=== PATIENT | male | born 1955 | race Caucasian/White ===

== ENCOUNTER → 2020-01-23 | Outpatient (CLI) | payer OTHER ==
[2020-01-23 13:52] LABS: Basophils % (A) 0 %; Eosinophils # (A) 0.1 k/uL (0-0.7); Eosinophils % (A) 1 %; HCT 42.3 % (39.0-53.0); HGB 13.7 gm/dL (13.0-17.5); Lymphocytes # (A) 1.2 k/uL (1.0-4.8); Lymphocytes % (A) 15 %; MCH 31.4 pg (25.0-35.0); MCHC 32.3 g/dL (31.0-37.0); MCV 97.1 fL (80.0-100.0); Mean Platelet Volume 6.6; Monocytes # (A) 0.4 k/uL (0-1.0); Monocytes % (A) 5 %; Neutrophils # (A) 6.3 k/uL (1.3-7.7); Neutrophils % (A) 78 %; Platelet Count 280 k/uL (150-450); RBC 4.36 m/uL (4.30-5.90); RDW 13.4 % (11.5-15.5)
[2020-01-23 18:57] LABS: Albumin 3.8 g/dL (3.80-4.90); Albumin/Globulin Ratio 2.11 (1.60-3.17); Anion Gap 3.5 mmol/L (4.00-12.00); BUN/Creat Ratio 12.22 Ratio (12.00-20.00); Carbon Dioxide 29.5 mmol/L (21.6-31.8); Globulin 1.8 g/dL (1.6-3.3); Non-African American GFR(CKD) 90.6 (60.0-200.0); Potassium 4.2 mmol/L (3.5-5.5); Total Bilirubin 0.5 mg/dL (0.2-1.2); Total Protein 5.6 g/dL (6.2-8.2)
== END | disposition home or self-care (01) ==
LOC: LABWHC1 12:13
PROVIDERS: ATTEND Nurse Practitioner
DX: R10.13 Epigastric pain (principal)
CPT/HCPCS: 36415; 80053; 85025

== ENCOUNTER 2020-02-04 09:11 | Day surgery (SDC) | payer OTHER ==
[2020-01-31 16:08] VITALS: BMI 21.1
[~2020-02-04 09:11] MED LIST: LACTATED RINGERS 1,000 ML IV SCH
[2020-02-04 09:34] VITALS: RESP 16; TEMP 97.6
[2020-02-04] MEDS ORDERED: LIDOCAINE 1% (10MG/ML) FOR IV START INTRADERMA ONE (09:36)
[2020-02-04] MEDS ORDERED: PROPOFOL 10 MG/ML 20 ML VIAL IV ONE (09:47)
--- NOTE | 2020-02-04 10:17 | P.PCN ---
Date of Procedure: 02/04/20 Description of Procedure: BRIEF HISTORY: Patient is a 64-year-old, pleasant, who presents for EGD for evaluation of epigastric pain. Patient has been having symptoms of epigastric pain, bloating and eructation. Possible prior EGD in the past. Also reports altered bowel function PROCEDURE PERFORMED: Esophagogastroduodenoscopy with biopsy. PREOPERATIVE DIAGNOSIS: Epigastric abdominal pain. ESTIMATED BLOOD LOSS: Minimal. IV sedation per anesthesia. PROCEDURE: After informed consent was obtained, the patient was brought into the endoscopy unit. IV sedation was administered by Anesthesia under continuous monitoring. Initially the Olympus GIF-190 video endoscope was inserted into the mouth. Esophagus intubated without any difficulty. It was gradually advanced into the stomach and duodenum and carefully examined. The bulb and the second part of the duodenum appeared normal, with biopsies. The scope at this time was withdrawn to the stomach, adequately insufflated with air, and upon careful examination, mucosa of the antrum, body, cardia and the fundus appeared normal, with some mild scattered erythema in the antrum and body suggestive of mild gastritis biopsied. The scope was then withdrawn into the esophagus. The GE junction was located at 39 cm from the incisors and biopsied with suspicion for a short tongue of Blue's esophagus and with a 1 cm hiatal hernia noted. The esophagus appeared normal. There were no erosions or ulcerations seen and the patient tolerated the procedure well. IMPRESSION: 1. Mild gastritis. 2. Small hiatal hernia. 3. Biopsies of the duodenum, antrum and body and GE junction. RECOMMENDATIONS: The findings of this examination were discussed with the patient. Okay to resume diet. Okay to resume medications. Continue PPI therapy. Await pathology from biopsies. Patient was scheduled for a colonoscopy but was unable to tolerate prep, and reschedule with alternate prep.
[2020-02-04 10:31] VITALS: BP 126/48; PULSE 84
== END 2020-02-04 11:22 | disposition home or self-care (01) ==
LOC: ORWHC2ENDO 09:11
PROVIDERS: ATTEND Internal Medicine
DX: K29.70 Gastritis, unspecified, without bleeding (principal); K44.9 Diaphragmatic hernia without obstruction or gangrene; K22.70 Barrett's esophagus without dysplasia; R19.4 Change in bowel habit; K08.409 Partial loss of teeth, unspecified cause, unspecified class; F17.200 Nicotine dependence, unspecified, uncomplicated; N40.0 Benign prostatic hyperplasia without lower urinary tract symptoms; K21.9 Gastro-esophageal reflux disease without esophagitis; Z91.030 Bee allergy status; Z91.038 Other insect allergy status; Z79.899 Other long term (current) drug therapy; Z79.1 Long term (current) use of non-steroidal anti-inflammatories (NSAID); Z98.890 Other specified postprocedural states
CPT/HCPCS: 88305; 43239; J2704

== ENCOUNTER → 2020-02-06 | Outpatient (CLI) | payer OTHER ==
--- NOTE | 2020-02-06 21:00 | CT ---
EXAMINATION TYPE: CT abdomen pelvis w con DATE OF EXAM: 02/06/2020 COMPARISON: None INDICATION: ABNORMAL WEIGHTLOSS/AB PAIN X 3 MONTHS DLP: 445.3 mGycm, Automated exposure control for dose reduction was used. CONTRAST: 100 mL of Isovue 300. Study performed with Oral Contrast TECHNIQUE: Axial images were obtained from above the diaphragm to the pubic rami in the axial plane a t 5 mm thick sections. Reconstructed images are reviewed on the computer in the coronal plane. FINDINGS: Limited CT sections are obtained the lung bases. The lung bases are clear. CT ABDOMEN: Liver: Normal Spleen: Normal Pancreas: Normal Adrenal glands: The adrenal glands are normal. Gallbladder: Normal Kidneys: No masses are evident. No hydronephrosis is present. No cysts are present. Delayed images were obtained through the kidneys, which remain unremarkable. Aorta: Vascular calcification is within the aorta. Inferior vena cava: Normal. CT PELVIS: The ascending: There is diffusely thickened and somewhat prominent. There are dilated small bowel loo ps within the lower abdomen. Milder wall thickening of the terminal ileum appears to be present. More proximal small bowel loops appear nondilated. A small bowel intussusception is identified in left up per quadrant. Example image series 7 image 34. No obstruction is evident. Appendix: Not identified. No suspicious inflammatory changes are evident Urinary bladder: Thickened urinary bladder wall. There is lobular increased density within the inferi or urinary bladder which may be direct extension from the enlarged prostate. Neoplastic invasion and urinary bladder neoplasm should also be considered. Additional workup is recommended. Genitourinary structures: Prostate is very prominent impressing on the inferior and a bladder. Osseous structures: There is a sclerotic lesion within the medial right iliac wing. This is nonspecif ic. Sacroiliac joint degenerative changes are present. IMPRESSIONS: 1. Enlarged lobular prostate with inferior impression on the urinary bladder. Neoplasm should be con sidered within the differential. Direct invasion or urinary bladder floor neoplasm should be consider ed. 2. Diffuse thickening of the ascending colon with prominence of the distal small bowel loop sepulveda in dilated distal small bowel loop. Correlate for colitis and ileitis. 3. Note is made of a small bowel intussusception without obstruction in the left upper quadrant of th e abdomen.
== END | disposition home or self-care (01) ==
LOC: RADCTMAIN 11:31
PROVIDERS: ATTEND Nurse Practitioner
DX: N40.0 Benign prostatic hyperplasia without lower urinary tract symptoms (principal); K56.1 Intussusception; K63.89 Other specified diseases of intestine
CPT/HCPCS: 74177; Q9967

== ENCOUNTER 2020-03-10 09:43 | Day surgery (SDC) | payer OTHER ==
[2020-03-06 16:07] VITALS: BMI 20.6
[~2020-03-10 09:43] MED LIST changes: +LIDOCAINE 1% (10MG/ML) FOR IV START INTRADERMA PRN
[2020-03-10] MEDS ORDERED: ONDANSETRON 4 MG/2 ML VIAL ONE (10:18)
[2020-03-10 10:25] VITALS: RESP 16; TEMP 97.3
[2020-03-10] MEDS ORDERED: LIDOCAINE 1% INJ 10MG/ML (20 ML MDV) ONE (10:50)
[2020-03-10] MEDS ORDERED: PROPOFOL 10 MG/ML 20 ML VIAL IV ONE (10:50)
--- NOTE | 2020-03-10 11:54 | P.PCN ---
Date of Procedure: 03/10/20 Description of Procedure: Brief history: Patient is a pleasant 64-year-old male presenting for colonoscopy for evaluation of screening for malignant neoplasm of the colon. The patient had previously been in the clinic where he complained of abdominal pain, unintentional weight loss. He had EGD and evaluation significant only for mild gastritis. Computed tomography scan of the abdomen and pelvis showed a large lobular prostate as well as diffuse thickening of the ascending colon with prominence of the distal small bowel sepulveda and a dilated distal small bowel loops with recommendation to correlate for colitis or ileitis. Procedure performed: Colonoscopy with biopsy, polypectomy and tattoo Estimated blood loss: Minimal. Preoperative diagnosis: Screening for malignant neoplasm of the colon, unintentional weight loss, abdominal pain Anesthesia: MAC Procedure: After informed consent was obtained from the patient was brought into the endoscopy unit and IV sedation was administered by anesthesia under continuous monitoring. Initial digital rectal examination was normal, except for nonthrombosed external hemorrhoids. Olympus CF 190 video colonoscope was then inserted into the rectum and gradually advanced to the right colon where abnormal thickened tissue which was quite friable was visualized unclear if this represented a mass or active colitis and multiple biopsies were taken of this right colon abnormal tissue/mass with 3 mL of ink placed proximal to the area to tattoo the location in case malignancy is found. Random biopsies were also taken of transverse colon, left colon and right colon all which appeared otherwise normal. Diverticula were noted throughout the left colon. Internal hemorrhoids were seen on retroflexion in the colon. 2 polyps were removed one diminutive 2 mm polyp in the rectum with cold forcep polypectomy and 1 from the descending colon measuring approximately 8 mm in size with hot snare polypectomy. Retroflexion in the colon was significant only for internal hemorrhoids as reported with no masses noted. The patient tolerated the proc edure well. Impression: 1. Abnormal thickened tissue in the right colon unclear if this represents a mass or active colitis/ileitis with biopsies taken and tattoo placed proximal to the mass. 2. Random biopsies taken of the right colon, transverse colon and left colon. 3. Pedunculated 8 mm descending colon polyp removed with hot snare polypectomy. 4. Diminutive 2 mm rectal polyp removed with cold forcep polypectomy. 5. Internal and external hemorrhoids. Recommendations: Findings of this examination were discussed with the patient as well as his . Okay to resume diet. Would recommend avoiding very fibrous foods for now. Patient will be given a follow-up in the GI clinic next week to go over biopsy results for further management.
[2020-03-10 12:04] VITALS: BP 135/83; PULSE 91
== END 2020-03-10 12:55 | disposition home or self-care (01) ==
LOC: ORWHC2ENDO 09:43
PROVIDERS: ATTEND Internal Medicine
DX: C18.2 Malignant neoplasm of ascending colon (principal); D12.4 Benign neoplasm of descending colon; K62.1 Rectal polyp; K63.89 Other specified diseases of intestine; K57.30 Diverticulosis of large intestine without perforation or abscess without bleeding; K64.8 Other hemorrhoids; K64.4 Residual hemorrhoidal skin tags; N40.0 Benign prostatic hyperplasia without lower urinary tract symptoms; K21.9 Gastro-esophageal reflux disease without esophagitis; Z79.899 Other long term (current) drug therapy; Z91.030 Bee allergy status
CPT/HCPCS: 45385; 45380; 45381; 88305; J2405; J2001; J2704; 44404

== ENCOUNTER → 2020-03-26 | Outpatient (CLI) | payer OTHER | END | disposition home or self-care (01) | LOC: LABWHC1 10:20 | PROVIDERS: ATTEND Surgery | DX: U07.1 COVID-19 (principal) ==

== ENCOUNTER 2020-03-29 06:28 | Inpatient (IN) | payer OTHER ==
[2020-03-27 11:10] VITALS: BMI 19.9
[~2020-03-29 06:28] MED LIST changes: -LACTATED RINGERS 1,000 ML IV SCH; -LIDOCAINE 1% (10MG/ML) FOR IV START INTRADERMA PRN; +metroNIDAZOLE-NS PMX 500 MG in SALINE 1 100ML.BAG IVPB ONE
[2020-03-29] MEDS ORDERED: HEPARIN SODIUM,PORCINE 5,000 UNIT/ML 1 ML VIAL SQ ONE (08:27)
[2020-03-29] MEDS ORDERED: PROPOFOL 10 MG/ML 20 ML VIAL IV ONE (08:51)
[2020-03-29] MEDS ORDERED: MIDAZOLAM 2 MG/2 ML VIAL ONE (08:51)
[2020-03-29] MEDS ORDERED: LIDOCAINE 1% INJ 10MG/ML (20 ML MDV) ONE (08:51)
[2020-03-29] MEDS ORDERED: ONDANSETRON 4 MG/2 ML VIAL ONE (08:51)
[2020-03-29] MEDS ORDERED: DEXAMETHASONE SOD PHOSPHATE 10 MG/ML 1 ML VIAL ONE (08:51)
[2020-03-29] MEDS ORDERED: PHENYLEPHRINE-0.9% NACL SYG 1 MG/10 ML SYRINGE ONE (08:51)
[2020-03-29] MEDS ORDERED: fentaNYL (PF) 50 MCG/ML 2 ML AMP ONE (08:51)
[2020-03-29] MEDS ORDERED: GLYCOPYRROLATE 0.2 MG/ML 2 ML VIAL ONE (08:51)
[2020-03-29] MEDS ORDERED: SUCCINYLCHOLINE CHLORIDE 100 MG/5 ML SYR IV ONE (08:51)
[2020-03-29] MEDS ORDERED: ROCURONIUM 10 MG/ML (10 ML VIAL) IV ONE (08:51)
[2020-03-29] MEDS ORDERED: NEOSTIGMINE 1 MG/ML 10 ML VIAL ONE (08:51)
[2020-03-29] MEDS ORDERED: LACTATED RINGERS 1,000 ML IV ONE ×2 (08:59→10:49)
[2020-03-29] MEDS ORDERED: NALOXONE 0.4 MG/ML 1 ML VIAL IV PRN (09:28)
--- NOTE | 2020-03-29 09:31 | P.ANPRN ---
Procedure Note - Anesthesia - Epidural/Spinal Epidural Continuous Time Out Performed: Yes Date of Procedure: 03/29/20 Procedure Start Time: 08:51 Procedure Stop Time: 08:56 Location of Patient: PreOp Indication: Acute Post-Operative Pain Sedation Type: Sedate with meaningful contact maintained Preparation: Sterile Dressing Position: Sitting Catheter: Indwelling Needle Guage: 18 Injectate: Test Dose Lidocaine1.5% w/1:200,000 epi Blood Aspirated: No Pain Paresthesia on Injection Noted: No Events: Uneventful and Well Tolerated (test dose 3cc given no change noticed)
[2020-03-29] MEDS ORDERED: BUPIVACAINE (PF) 0.25% 30 ML VIAL SQ ONE ×2 (10:10)
[2020-03-29] MEDS ORDERED: LIDOCAINE 1%-EPI 1:100,000 20 ML VIAL SQ ONE ×2 (10:10)
--- NOTE | 2020-03-29 10:37 | P.OP ---
Date of Procedure: 03/29/20 Preoperative Diagnosis: Inability to insert urethral catheter Postoperative Diagnosis: Inability to insert urethral catheter secondary to urethral false passage Procedure(s) Performed: Cystoscopy with placement of urethral catheter Anesthesia: DEONDRE Surgeon: Joseph Payan Pathology: none sent Condition: stable Disposition: no change Indications for Procedure: Patient is a 64-year-old male recently diagnosed with colon cancer who was scheduled to undergo robotically assisted laparoscopic right colectomy this morning. An attempt was made to place urethral catheter but this proved impossible. Dr. Pozo also attempted passage of a filiform but this failed. I was asked to see the patient for the purpose of placement of the catheter as the patient is under general anesthesia for his scheduled surgery. Description of Procedure: The patient had previously been given general anesthesia via orotracheal intubation and was supine on the operating table. The penis was prepped with Betadine solution and draped in a sterile fashion. The flexible 16-Belgian cystoscope was passed through the urethra under direct vision. In the bulbous urethra a false passage was encountered. Initially the opening into the true urethra was not readily visible but eventually it was located at 2:00. A 0.035 Glidewire was passed through the false passage and into the bladder. The cystoscope was then advanced over the Glidewire and into the bladder. The false passage was present in the bulbous urethra but there was no evidence of stricture. Prostatic urethra showed evidence of moderate lateral lobe enlargement. Both ureteral orifices were of normal location. The bladder was free of tumor, foreign body and diverticulum. The cystoscope was withdrawn leaving the Glidewire in place. A 16-Belgian coud catheter with a slit cut at its tip was advanced over the Glidewire and into the bladder. The balloon was inflated and concentrated urine drained. Patient tolerated the procedure well. The remainder the procedure will be performed by Dr. Pozo and a description will be in her operative note. I would recommend leaving the catheter in place for at least 4-5 days prior to removal.
--- NOTE | 2020-03-29 10:41 | P.GSCN ---
History of Present Illness Consult date: 03/29/20 Reason for Consult: Inability to insert urethral catheter History of present illness: The patient's a 64-year-old male who was recently discovered to have colon cancer and was scheduled to undergo robotically assisted right colectomy this morning. He was given a general anesthetic and attempts were made to pass a urethral catheter but this proved impossible. I was asked to see the patient intraoperatively for the purpose of placement of a catheter. The patient is under a general anesthetic and is intubated and because of that no additional history was obtainable. He was not on alpha blockers and apparently is not seen on a regular basis by a physician. Review of Systems ROS unobtainable: due to endotracheal tube Past Medical History Past Medical History: GERD/Reflux, Prostate Disorder Additional Past Medical History / Comment(s): spouse states "small bowel looped around itself,polyps removed on colonoscopy.",states 50 # wt loss since Jun 2019, pain in stomach with nausea and vomiting after eating, BPH. History of Any Multi-Drug Resistant Organisms: None Reported Past Surgical History: Ear Surgery, Orthopedic Surgery Additional Past Surgical History / Comment(s): colonoscopy,EGD,hand/finger, ear , shoulder Past Anesthesia/Blood Transfusion Reactions: No Reported Reaction Additional Past Anesthesia/Blood Transfusion Reaction / Comm: no hx blood transfusion Past Psychological History: No Psychological Hx Reported Smoking Status: Current every day smoker Past Alcohol Use History: None Reported Additional Past Alcohol Use History / Comment(s): smokes less than 1 ppd, smoking since 21 yrs old. quit drinking 8-9 yrs ago. Past Drug Use History: None Reported - Past Family History Father Family Medical History: Cancer Additional Family Medical History / Comment(s): brain and lung cancer Sister(s) Family Medical History: Cancer Additional Family Medical History / Comment(s): breast cancer Medications and Allergies Home Medications Medication Instructions Recorded Confirmed Type Omeprazole 40 mg PO DAILY 01/31/20 03/29/20 History Allergies Allergy/AdvReac Type Severity Reaction Status Date / Time bees hornet, wasps Allergy Unknown swelling, Uncoded 03/29/20 08:17 difficulty breathing Surgical - Exam Vital Signs Temp Pulse Resp BP Pulse Ox 98.4 F 81 18 118/75 99 03/29/20 07:00 03/29/20 07:00 03/29/20 07:00 03/29/20 07:00 03/29/20 07:00 - General well developed, well nourished - Abdomen Hernia: none - Genitourinary normal penis with no external lesions, testicles present, other - Rectum Blood is present at the urethral meatus Assessment and Plan (1) Urethral bleeding Narrative/Plan: Inability to insert the patient's urethral catheter and his urethral bleeding is most likely related to either a urethral stricture or a false passage from previous attempts at insertion of a catheter. Cystoscopy will be performed to facilitate insertion of a catheter. Current Visit: Yes Status: Acute Code(s): N36.8 - OTHER SPECIFIED DISORDERS OF URETHRA SNOMED Code(s): 540477284
--- NOTE | 2020-03-29 11:25 | P.OP ---
Date of Procedure: 03/29/20 Preoperative Diagnosis: Colon cancer, small bowel intussusception Postoperative Diagnosis: Obstructing colon cancer with no sign of intussusception Procedure(s) Performed: Diagnostic laparoscopy, laparotomy with right hemicolectomy Anesthesia: DEONDRE Surgeon: Jessica Pozo Estimated Blood Loss (ml): 50 Pathology: other Condition: stable Disposition: PACU Indications for Procedure: The patient presented with progressive nausea and vomiting. Colonoscopy demonstrated a right colon tumor. Computed tomography scan was suggestive of a small bowel intussusception. Description of Procedure: The patient was taken the operative suite where he is prepped and draped in the usual sterile manner under a general endotracheal anesthetic. A small infraumbilical incision was made an optical trocar was placed into the abdominal cavity. Pneumoperitoneum was established with CO2 gas. There are markedly dilated loops of small bowel in the right colon. There are also some nondistended loops. The nondistended loops were followed and actually went up to the ligament of Treitz. A definite intussusception could not be seen. The dilated loops of small bowel were to heavy to be able to run. Therefore the abdomen was entered through a midline incision. The dilated loops of small bowel were brought out of the abdominal cavity. These went all the way to the cecum. The cecum and right colon were markedly distended. The small bowel was run from the ileocecal valve proximally. The small bowel contents were milked into the stomach and aspirated through orogastric tube. There was no evidence of any small bowel tumors or signs of intussusception. In the hepatic flexure there is noted to be an obstructing colon tumor. The terminal ileum and right colon were then mobilized along the white line of Toldt. The right colon is brought up through the incision. The transverse colon is dissected off the stomach and the gastrocolic ligament was taken down with LigaSure. A site was then chosen in the mid transverse colon for resection. Opening was made in the mesentery. The stapler was placed and fired. A site was chosen on the terminal ileum and opening was made in the mesentery. Stapler was placed and fired. Mesentery was then dissected free with LigaSure. The ileocolic vessels were clamped, cut and tied with 0 Vicryl suture. There are several enlarged lymph nodes palpated in the mesentery. The middle colic vessels are then clamped cut and tied. The specimen was passed off. The ileum and transverse colon were then approximated using seromuscular sutures of 3-0 Vicryl. An opening was then made in each limb of the bowel and a THONY stapler was placed and fired. The staple line was hemostatic. The remaining defect was approximated with Valeria's and it was closed using a TA stapler. The staple line was reinforced with 3-0 Vicryl. The mesenteric defect was closed with 3-0 Vicryl. Gloves were changed. The bowel was allowed to lay in gentle loops. The fashion peritoneum was closed with 1 PDS. The skin incisions were closed with ryan. Tolerated the procedure without difficulty and was taken recovery room in satisfactory condition. According to or personnel, all counts were correct.
[2020-03-29] MEDS: ROPIVACAINE 250 MG, HYDROMORPHONE (PF) 5 MG in SODIUM CHLORIDE 0.9% 200 ML EPIDURAL PRN ×2 (11:30→12:29)
--- NOTE | 2020-03-29 13:29 | P.CONS ---
History of Present Illness - Reason for Consult Consult date: 03/29/20 Medical management Requesting physician: Jessica Pozo - Chief Complaint Colon cancer post right sided hemicolectomy, severe BPH with fully catheter - History of Present Illness 63-year-old male with no primary care physician who apparently has been suffering from significant weight loss with abdominal pain nausea vomiting for over one year become much worse in the last few weeks. Apparently was in to see his daughter who was diagnosed with severe Crohn disease had colostomy and ileostomy with Dr. Pratt and general surgery when the finally common to gastroenterology about his, with her and was brought to the office seen their service and end up being scheduled for elective colonoscopy was attempted first time not successful with poor prep and not been able to advance the scope. Second colonoscopy was done successfully in March 10 the result came back positive for stage IIB adenocarcinoma of the colon apparently large right-sided colon cancer spot along with 2 polyps were removed. Patient was scheduled with Dr. Pozo for follow-up appointment and was referred to Dr. Fuentes oncology with him been very symptomatic had lost over 50 pound has been having sign and symptom of bowel obstruction become urgent matter to go for surgery ALICIA. Patient had his surgery today with attempt of doing robotic surgery and the been conventional with laparoscopy will laparotomy with right sided hemicolectomy along with small bowel inspection with no sign of obstruction. While his in the OR had difficult time advancing Lagunas catheter patient was seen Dr. Herrera and Lagunas was place in and patient be start on Flomax every day. Review of Systems CONSTITUTIONAL: Well-developed no acute respiratory distress. More drowsy after surgery EYES: No icterus sclerae, no conjunctivitis. EARS, NOSE, MOUTH, THROAT, and FACE: No sore throat, lymphadenopathy, carotid bruits or deformity. RESPIRATORY: No SOB cough or wheezes. CARDIOVASCULAR: No CP, Palpitation, PND, Orthopnea, or angina. Significant abdominal pain. GASTROINTESTINAL: No Abd pain, Nausea or vomiting, no Diarrhea or constipation, No GI Bleed, no distention or masses. GENITOURINARY: Negative for Hematuria or UTI, no kidney stones. Urinary obstruction with Lagunas catheter in. INTEGUMENT/BREAST: Negative for any muscular injury with mild osteoarthritis.. HEMATOLOGIC/LYMPHATIC: Negative for bleed or purpura. MUSCULOSKELTAL: Negative for Myalgia or arthralgia. NEURLOGICAL: No LOC, Sz or syncope, blurred vision dizziness or abnormality.. BEHAVIORAL/PSYCH: Negative. ENDOCRINE: Negative. Social history: Patient smokes half pack a day for 30 years [place] and abused no illicit drug use he works in [employer] has been for over 40 years. Family history: His father age 59 from lung cancer, mother dying her 80 from colon cancer CVA, patient had 1 sister with eye from a testing breast-cancer and has for living brother and one sister with history of CAD. Patient had 2 children 1 has multiple problem with liver and pancreatic area most likely gallstone and 1 has Crohn disease. Past Medical History Past Medical History: GERD/Reflux, Prostate Disorder Additional Past Medical History / Comment(s): spouse states "small bowel looped around itself,polyps removed on colonoscopy.",states 50 # wt loss since Jun 2019, pain in stomach with nausea and vomiting after eating, BPH. History of Any Multi-Drug Resistant Organisms: None Reported Past Surgical History: Ear Surgery, Orthopedic Surgery Additional Past Surgical History / Comment(s): colonoscopy,EGD,hand/finger, ear , shoulder Past Anesthesia/Blood Transfusion Reactions: No Reported Reaction Additional Past Anesthesia/Blood Transfusion Reaction / Comm: no hx blood transfusion Past Psychological History: No Psychological Hx Reported Smoking Status: Current every day smoker Past Alcohol Use History: None Reported Additional Past Alcohol Use History / Comment(s): smokes less than 1 ppd, smoking since 21 yrs old. quit drinking 8-9 yrs ago. Past Drug Use History: None Reported - Past Family History Father Family Medical History: Cancer Additional Family Medical History / Comment(s): brain and lung cancer Sister(s) Family Medical History: Cancer Additional Family Medical History / Comment(s): breast cancer Medications and Allergies Home Medications Medication Instructions Recorded Confirmed Type Omeprazole 40 mg PO DAILY 01/31/20 03/29/20 History Allergies Allergy/AdvReac Type Severity Reaction Status Date / Time bees hornet, wasps Allergy Unknown swelling, Uncoded 03/29/20 08:17 difficulty breathing Physical Exam Vitals: Vital Signs Temp Pulse Resp BP Pulse Ox 03/29/20 12:15 60 16 139/81 98 03/29/20 12:00 60 16 159/68 100 03/29/20 11:45 59 L 16 168/77 100 03/29/20 11:30 97 F L 69 14 169/77 100 11/08/20 07:00 98.4 F 81 18 118/75 99 Intake and Output 03/28/20 03/29/20 03/29/20 22:59 06:59 14:59 Intake Total 1762 Output Total 425 Balance 1337 Intake: IV 1762 Output: Urine 375 Estimated Blood Loss 50 Other: Weight 66.678 kg 66.678 kg General Appearance: Alert, cooperative, no distress, appears stated age. No NG tube Neck HEENT: Supple, no lymphadenopathy, no thyroid enlargement, no carotid bruits. Lungs: Clear to auscultation without crackles or wheezes no rhonchi, no deformity. Chest Wall: Chest wall normal expansion with deep inspiration no tenderness and no deformity was found on exam, no costochondral pain or discomfort. Heart: Regular rate and rhythm, S1, S2 normal, no murmur, rub or gallop. Back: Symmetric, no curvature, ROM normal, no CVA tenderness. Abdomen: Soft, non-tender, bowel sounds active all four quadrants, no masses, no organomegaly. Stool incision the one in the midline and one on the right side with no sign of bleeding hematoma or hemorrhage Extremities: Extremities normal, atraumatic, no cyanosis or edema. Pulses: 2+ and symmetric. Skin: Skin color, texture, tugor normal, no rashes or lesions. Neurologic: Alert oriented x3 cranial nerves II through XII intact, no motor deficit, no abnormal balance or gait. Assessment and Plan Assessment: 1 post laparotomy with right hemicolectomy: Patient stable post surgery continue to watch hemodynamic status continue pain management with epidural this point GI DVT pulmonary prophylaxis protocol. 2 right-sided colon cancer: Not a clear whether it's involving the lymph node or not was diagnosed as stage IIb by colonoscopy and biopsy patient is seen oncology will need follow-up with oncology after the final pathology from his surgical site done to determine further management. 3 severe BPH with urinary retention: Patient have Lagunas catheter and we will add Flomax 0.4 mg a day from now on. 4 chronic history of nicotine dependency and smoking: Patient be on nicotine patch 14 mg daily. 5 mild hyperglycemia: On diet control only Accu-Chek with sliding scale coverage and be done. 6 GI prophylaxis: Patient be on pantoprazole IV. 7 DVT prophylaxis: Patient be on heparin subcutaneous. 8 pain management: On epidural anesthesia. CODE STATUS: Full code. Dr. Pozo thank you much for the consult psych can be any further help to please let me know.
[2020-03-29] MEDS: D5-0.45% NACL WITH KCL 20MEQ/L 1,000 ML IV SCH (13:44)
[2020-03-29] MEDS: PANTOPRAZOLE 40 MG/10 ML VIAL IV SCH (13:45)
[2020-03-29] MEDS: KETOROLAC 15 MG/ML 1 ML VIAL IVP SCH ×2 (13:46→17:18)
[2020-03-29] MEDS: METOCLOPRAMIDE 5 MG/ML 2 ML VIAL IVP SCH ×2 (13:46→17:18)
[2020-03-29] MEDS: HEPARIN SODIUM,PORCINE 5,000 UNIT/ML 1 ML VIAL SQ SCH (15:42)
[2020-03-29] MEDS: metroNIDAZOLE-NS PMX 500 MG in SALINE 1 100ML.BAG IVPB SCH (16:47)
[2020-03-29 22:49] LABS: HCT 35.9 % (39.0-53.0); HGB 11.9 gm/dL (13.0-17.5); MCH 31.2 pg (25.0-35.0); MCV 94.6 fL (80.0-100.0); Mean Platelet Volume 6.7; Platelet Count 320 k/uL (150-450); RDW 13.5 % (11.5-15.5); WBC 14.2 k/uL (3.8-10.6)
[2020-03-29 23:46] LABS: African American GFR (CKD) >90 (>60 ml/min/1.73 sqM); Anion Gap 1 mmol/L; Blood Urea Nitrogen 18 mg/dL (9-20); Calcium 8.4 mg/dL (8.4-10.2); Carbon Dioxide 27 mmol/L (22-30); Chloride 104 mmol/L (98-107); Glucose 151 mg/dL (74-99); Non-African American GFR(CKD) >90 (>60 ml/min/1.73 sqM); Potassium 4.8 mmol/L (3.5-5.1); Sodium 132 mmol/L (137-145)
[2020-03-30] MEDS: KETOROLAC 15 MG/ML 1 ML VIAL IVP SCH ×5 (00:52→23:58)
[2020-03-30] MEDS: HEPARIN SODIUM,PORCINE 5,000 UNIT/ML 1 ML VIAL SQ SCH ×4 (00:52→23:59)
[2020-03-30] MEDS: METOCLOPRAMIDE 5 MG/ML 2 ML VIAL IVP SCH ×4 (00:53→17:34)
[2020-03-30] MEDS: D5-0.45% NACL WITH KCL 20MEQ/L 1,000 ML IV SCH ×3 (00:53→17:51)
[2020-03-30] MEDS: metroNIDAZOLE-NS PMX 500 MG in SALINE 1 100ML.BAG IVPB SCH (00:54)
[2020-03-30 06:24] LABS: Basophils % (A) 0 %; Eosinophils # (A) 0.1 k/uL (0-0.7); Eosinophils % (A) 1 %; HCT 36.8 % (39.0-53.0); HGB 11.9 gm/dL (13.0-17.5); Lymphocytes # (A) 0.8 k/uL (1.0-4.8); Lymphocytes % (A) 7 %; MCH 30.8 pg (25.0-35.0); MCHC 32.4 g/dL (31.0-37.0); MCV 95.1 fL (80.0-100.0); Mean Platelet Volume 6.7; Monocytes # (A) 0.3 k/uL (0-1.0); Monocytes % (A) 3 %; Neutrophils # (A) 9.1 k/uL (1.3-7.7); Neutrophils % (A) 87 %; Platelet Count 277 k/uL (150-450); RBC 3.87 m/uL (4.30-5.90); RDW 13.6 % (11.5-15.5); WBC 10.4 k/uL (3.8-10.6)
--- NOTE | 2020-03-30 06:57 | P.PN ---
Progress Note - Text 03/30/20 650am 64-year-old male status post bowel resection by Dr. Pozo. Patient has an epidural catheter for postop pain control with solution running at 6 5 mL an hour. Patient has a VAS of 4-5 with no motor or sensory deficits noted. The epidural infusion rate was decreased last night at 1:00 because of low blood pressure. The nursing staff never rechecked the pressure after the first one to light talked with him this morning and had to be checked the blood pressure. The blood pressure this morning is 99/52. Plan to continue the infusion rate at 5 mL an hour
[2020-03-30] MEDS: NICOTINE 14MG/24HR PATCH TRANSDERM SCH (08:53)
[2020-03-30] MEDS: TAMSULOSIN 0.4 MG CAP.ER.24H PO SCH (08:56)
[2020-03-30] MEDS: PANTOPRAZOLE 40 MG/10 ML VIAL IV SCH (08:59)
[2020-03-30 10:16] LABS: African American GFR (CKD) 92.4 (60.0-200.0); Albumin 3.2 g/dL (3.80-4.90); Albumin/Globulin Ratio 2.13 (1.60-3.17); Anion Gap 5.9 mmol/L (4.00-12.00); Calcium 8.4 mg/dL (8.7-10.3); Carbon Dioxide 25.1 mmol/L (21.6-31.8); Globulin 1.5 g/dL (1.6-3.3); Non-African American GFR(CKD) 79.7 (60.0-200.0); Total Bilirubin 0.6 mg/dL (0.3-1.2); Total Protein 4.7 g/dL (6.2-8.2)
--- NOTE | 2020-03-30 11:33 | P.PN ---
Subjective Progress Note Date: 03/30/20 HISTORY OF PRESENT ILLNESS 63-year-old male with no primary care physician who apparently has been sufferi ng from significant weight loss with abdominal pain nausea vomiting for over one year become much worse in the last few weeks. Apparently was in to see his daughter who was diagnosed with severe Crohn disease had colostomy and ileostomy with Dr. Pratt and general surgery when the finally common to gastroenterology about his, with her and was brought to the office seen their service and end up being scheduled for elective colonoscopy was attempted first time not successful with poor prep and not been able to advance the scope. Second colonoscopy was done successfully in March 10 the result came back positive for stage IIB adenocarcinoma of the colon apparently large right-sided colon cancer spot along with 2 polyps were removed. Patient was scheduled with Dr. Pozo for follow-up appointment and was referred to Dr. Fuentes oncology with him been very symptomatic had lost over 50 pound has been having sign and symptom of bowel obstruction become urgent matter to go for surgery ALICIA. Patient had his surgery today with attempt of doing robotic surgery and the been conventional with laparoscopy will laparotomy with right sided hemicolectomy along with small bowel inspection with no sign of obstruction. While his in the OR had difficult time advancing Lagunas catheter patient was seen Dr. Herrera and Lagunas was place in and patient be start on Flomax every day. 03/30: The patient has a CONGRESSIONAL AIDE in place for pain control and pain is much improved today. Unfortunately later in the afternoon, CONGRESSIONAL AIDE came out. He has incentive spirometry as bedside but has not used. Patient instructed on use and encouraged to use every hour. He is currently tolerating a low fiber diet. A bdomen soft with mild generalized tenderness. He has been afebrile, heart rate 68, blood pressure 92/47, pulse ox 95% on room air. Discussed smoking cessation and patient will agree to nicotine patch and encouraged to stop smoking after discharge from the hospital. Repeat blood work reveals normal WBC 10.4, hemoglobin 11.9. Sodium 134 otherwise electrolytes and renal function normal. Blood sugar 114. REVIEW OF SYSTEMS CONSTITUTIONAL: Well-developed no acute respiratory distress. Denies fever, denies chills. EYES: No icterus sclerae, no conjunctivitis. EARS, NOSE, MOUTH, THROAT, and FACE: No sore throat, lymphadenopathy, carotid bruits or deformity. RESPIRATORY: No SOB cough or wheezes. CARDIOVASCULAR: No CP, Palpitation, PND, Orthopnea, or angina. Significant abdominal pain. GASTROINTESTINAL: Mild Abd pain, no Nausea or vomiting, no Diarrhea or constipat ion, No GI Bleed, no distention or masses. GENITOURINARY: Negative for Hematuria or UTI, no kidney stones. Urinary obstruction with Lagunas catheter in. INTEGUMENT/BREAST: Negative for any muscular injury with mild osteoarthritis.. HEMATOLOGIC/LYMPHATIC: Negative for bleed or purpura. MUSCULOSKELTAL: Negative for Myalgia or arthralgia. NEURLOGICAL: No LOC, Sz or syncope, blurred vision dizziness or abnormality.. BEHAVIORAL/PSYCH: Negative. ENDOCRINE: Negative. PHYSICAL EXAMINATION General Appearance: Alert, cooperative, no distress, appears stated age. Patient's at bedside. Neck HEENT: Supple, no lymphadenopathy, no thyroid enlargement, no carotid bruits. Lungs: Clear to auscultation without crackles or wheezes no rhonchi, no deformity. Chest Wall: Chest wall normal expansion with deep inspiration no tenderness and no deformity was found on exam, no costochondral pain or discomfort. Heart: Regular rate and rhythm, S1, S2 normal, no murmur, rub or gallop. Back: Symmetric, no curvature, ROM normal, no CVA tenderness. Abdomen: Soft, non-tender, bowel sounds active all four quadrants, no masses, no organomegaly. Surgical incision the one in the midline and one on the right side with no sign of bleeding hematoma or hemorrhage Extremities: Extremities normal, atraumatic, no cyanosis or edema. Pulses: 2+ and symmetric. Skin: Skin color, texture, tugor normal, no rashes or lesions. Neurologic: Alert oriented x3 cranial nerves II through XII intact, no motor deficit, no abnormal balance or gait. ASSESSMENT AND PLAN 1 post laparotomy with right hemicolectomy: Patient stable post surgery continue to watch hemodynamic status continue pain management with epidural this point GI DVT pulmonary prophylaxis protocol. Pain control will be transitioned to IV Dilaudid. 2 right-sided colon cancer: Not a clear whether it's involving the lymph node or not was diagnosed as stage IIb by colonoscopy and biopsy patient is seen oncology will need follow-up with oncology after the final pathology from his surgical site done to determine further management. 3 severe BPH with urinary retention: Patient have Lagunas catheter and we will add Flomax 0.4 mg a day from now on. 4 chronic history of nicotine dependency and smoking. Start nicotine patch 14 mg daily. 5 mild hyperglycemia: On diet control only Accu-Chek with sliding scale coverage and be done. 6 GI prophylaxis: Patient be on pantoprazole IV. 7 DVT prophylaxis: Patient be on heparin subcutaneous. 8 pain management: On epidural anesthesia. CODE STATUS: Full code. DISCHARGE PLAN Home. Impression and plan of care have been directed as dictated by the signing physician. Rayna Godinez nurse practitioner acting as scribe for signing physician. Objective - Vital Signs Vital signs: Vital Signs Temp 98.3 F 03/30/20 07:00 Pulse 68 03/30/20 07:00 Resp 17 03/30/20 07:00 BP 92/47 03/30/20 07:00 Pulse Ox 95 03/30/20 07:00 Intake & Output 03/29/20 03/30/20 03/30/20 18:59 06:59 18:59 Intake Total 1762 Output Total 625 Balance 1137 Weight 66.678 kg Intake: IV 1762 Output: Urine 575 Coude 200 Estimated Blood Loss 50 Other: Voiding Method Indwelling Catheter Indwelling Catheter - Labs CBC & Chem 7: 03/30/20 06:08 03/30/20 06:08 Labs: Abnormal Lab Results - Last 24 Hours (Table) 03/29/20 03/29/20 03/30/20 Range/Units 22:40 22:40 06:08 WBC 14.2 H (3.8-10.6) k/uL RBC 3.80 L 3.87 L (4.30-5.90) m/uL Hgb 11.9 L 11.9 L (13.0-17.5) gm/dL Hct 35.9 L 36.8 L (39.0-53.0) % Neutrophils # 9.1 H (1.3-7.7) k/uL Lymphocytes # 0.8 L (1.0-4.8) k/uL Sodium 132 L (137-145) mmol/L Glucose 151 H (74-99) mg/dL
[2020-03-30] MEDS: HYDROmorphone 1 MG/ML 1 ML SYRINGE IVP PRN ×3 (12:04→23:59)
--- NOTE | 2020-03-30 12:16 | P.PN ---
Subjective Progress Note Date: 03/30/20 Principal diagnosis: Status post right hemicolectomy The patient is postoperative day 1 right hemicolectomy for obstructing colon tumor. The epidural came out this morning. He's having expected incisional pain. He is having less belching and bloating than preoperatively. He was able to eat scrambled eggs and toast this morning. Objective - Vital Signs Vital signs: Vital Signs Temp 98.3 F 03/30/20 07:00 Pulse 68 03/30/20 07:00 Resp 16 03/30/20 08:30 BP 92/47 03/30/20 07:00 Pulse Ox 95 03/30/20 07:00 Intake & Output 03/29/20 03/30/20 03/30/20 18:59 06:59 18:59 Intake Total 1762 1050 Output Total 625 Balance 1137 1050 Weight 66.678 kg Intake: IV 1762 Intake, IV Titration 600 Amount D5-0.45% NaCl with KCl 600 20Meq/l 1,000 ml @ 100 mls/hr IV .Q10H [facility] Rx#: [id number] Oral 450 Output: Urine 575 Coude 200 Estimated Blood Loss 50 Other: Voiding Method Indwelling Catheter Indwelling Catheter Indwelling Catheter # Voids 2 - Constitutional General appearance: Present: cooperative, no acute distress - Respiratory Respiratory: bilateral: CTA - Cardiovascular Rhythm: regular - Gastrointestinal General gastrointestinal: Present: normal bowel sounds, soft Localized gastrointestinal: surgical scar: diffuse (Dressing intact clean and dry) - Genitourinary Genitourinary Comment(s): Clear yellow urine - Labs CBC & Chem 7: 03/30/20 06:08 03/30/20 06:08 Labs: Abnormal Lab Results - Last 24 Hours (Table) 03/29/20 03/29/20 03/30/20 Range/Units 22:40 22:40 06:08 WBC 14.2 H (3.8-10.6) k/uL RBC 3.80 L 3.87 L (4.30-5.90) m/uL Hgb 11.9 L 11.9 L (13.0-17.5) gm/dL Hct 35.9 L 36.8 L (39.0-53.0) % Neutrophils # 9.1 H (1.3-7.7) k/uL Lymphocytes # 0.8 L (1.0-4.8) k/uL Sodium 132 L (137-145) mmol/L Glucose 151 H (74-99) mg/dL Calcium (8.7-10.3) mg/dL Total Protein (6.2-8.2) g/dL Albumin (3.80-4.90) g/dL Globulin (1.6-3.3) g/dL 03/30/20 Range/Units 06:08 WBC (3.8-10.6) k/uL RBC (4.30-5.90) m/uL Hgb (13.0-17.5) gm/dL Hct (39.0-53.0) % Neutrophils # (1.3-7.7) k/uL Lymphocytes # (1.0-4.8) k/uL Sodium 134 L (137-145) mmol/L Glucose 114 H (74-99) mg/dL Calcium 8.4 L (8.7-10.3) mg/dL Total Protein 4.7 L (6.2-8.2) g/dL Albumin 3.20 L (3.80-4.90) g/dL Globulin 1.5 L (1.6-3.3) g/dL Assessment and Plan (1) Colon cancer Current Visit: Yes Status: Acute Code(s): C18.9 - MALIGNANT NEOPLASM OF COLON, UNSPECIFIED SNOMED Code(s): 014803892 Plan: Gradually increase diet and activity as tolerated. Control pain. Pulmonary toilet. We'll keep the catheter in his bladder due to difficulty in insertion intraoperatively. Await pathology.
[2020-03-30] MEDS: HYDROcodone/APAP 5-325MG 1 EACH TAB PO PRN (20:20)
[2020-03-31] MEDS: D5-0.45% NACL WITH KCL 20MEQ/L 1,000 ML IV SCH ×2 (04:13→13:40)
[2020-03-31] MEDS: HYDROmorphone 1 MG/ML 1 ML SYRINGE IVP PRN ×3 (04:17→15:06)
[2020-03-31] MEDS: KETOROLAC 15 MG/ML 1 ML VIAL IVP SCH (05:29)
[2020-03-31] MEDS: TAMSULOSIN 0.4 MG CAP.ER.24H PO SCH (07:50)
[2020-03-31] MEDS: HEPARIN SODIUM,PORCINE 5,000 UNIT/ML 1 ML VIAL SQ SCH ×3 (07:50→23:06)
[2020-03-31] MEDS: NICOTINE 14MG/24HR PATCH TRANSDERM SCH (09:17)
[2020-03-31] MEDS: PANTOPRAZOLE 40 MG/10 ML VIAL IV SCH (09:24)
[2020-03-31] MEDS: HYDROcodone/APAP 5-325MG 1 EACH TAB PO PRN ×2 (12:19→18:05)
--- NOTE | 2020-03-31 13:40 | P.PN ---
Subjective Progress Note Date: 03/31/20 HISTORY OF PRESENT ILLNESS 63-year-old male with no primary care physician who apparently has been sufferi ng from significant weight loss with abdominal pain nausea vomiting for over one year become much worse in the last few weeks. Apparently was in to see his daughter who was diagnosed with severe Crohn disease had colostomy and ileostomy with Dr. Pratt and general surgery when the finally common to gastroenterology about his, with her and was brought to the office seen their service and end up being scheduled for elective colonoscopy was attempted first time not successful with poor prep and not been able to advance the scope. Second colonoscopy was done successfully in March 10 the result came back positive for stage IIB adenocarcinoma of the colon apparently large right-sided colon cancer spot along with 2 polyps were removed. Patient was scheduled with Dr. Pozo for follow-up appointment and was referred to Dr. Fuentes oncology with him been very symptomatic had lost over 50 pound has been having sign and symptom of bowel obstruction become urgent matter to go for surgery ALICIA. Patient had his surgery today with attempt of doing robotic surgery and the been conventional with laparoscopy will laparotomy with right sided hemicolectomy along with small bowel inspection with no sign of obstruction. While his in the OR had difficult time advancing Lagunas catheter patient was seen Dr. Herrera and Lagunas was place in and patient be start on Flomax every day. 03/30: The patient has a ROUTEMAN in place for pain control and pain is much improved today. Unfortunately later in the afternoon, ROUTEMAN came out. He has incentive spirometry as bedside but has not used. Patient instructed on use and encouraged to use every hour. He is currently tolerating a low fiber diet. A bdomen soft with mild generalized tenderness. He has been afebrile, heart rate 68, blood pressure 92/47, pulse ox 95% on room air. Discussed smoking cessation and patient will agree to nicotine patch and encouraged to stop smoking after discharge from the hospital. Repeat blood work reveals normal WBC 10.4, hemoglobin 11.9. Sodium 134 otherwise electrolytes and renal function normal. Blood sugar 114. 03/31: The patient has not had a bowel movement since surgery. Plan for increase activity and ambulate in the hallway. 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 Lagunas catheter is to remain in place until he follows up with urology in the office. Abdominal pain controlled. He is tolerating diet. No nausea or vomiting. He has been afebrile, heart rate 100, blood pressure 121/67, pulse ox 96% on room air. Anticipate possible discharge by tomorrow. REVIEW OF SYSTEMS CONSTITUTIONAL: Well-developed no acute respiratory distress. Denies fever, denies chills. EYES: No icterus sclerae, no conjunctivitis. EARS, NOSE, MOUTH, THROAT, and FACE: No sore throat, lymphadenopathy, carotid bruits or deformity. RESPIRATORY: No SOB cough or wheezes. CARDIOVASCULAR: No CP, Palpitation, PND, Orthopnea, or angina. GASTROINTESTINAL: Mild Abd pain, no Nausea or vomiting, no Diarrhea reports constipation, No GI Bleed, no distention or masses. GENITOURINARY: Negative for Hematuria or UTI, no kidney stones. Urinary obstruction with Lagunas catheter in. INTEGUMENT/BREAST: Negative for any muscular injury with mild osteoarthritis.. HEMATOLOGIC/LYMPHATIC: Negative for bleed or purpura. MUSCULOSKELTAL: Negative for Myalgia or arthralgia. NEURLOGICAL: No LOC, Sz or syncope, blurred vision dizziness or abnormality.. BEHAVIORAL/PSYCH: Negative. ENDOCRINE: Negative. PHYSICAL EXAMINATION General Appearance: Alert, cooperative, no distress, appears stated age. Patient's at bedside. Neck HEENT: Supple, no lymphadenopathy, no thyroid enlargement, no carotid bruits. Lungs: Clear to auscultation without crackles or wheezes no rhonchi, no deformity. Chest Wall: Chest wall normal expansion with deep inspiration no tenderness and no deformity was found on exam, no costochondral pain or discomfort. Heart: Regular rate and rhythm, S1, S2 normal, no murmur, rub or gallop. Back: Symmetric, no curvature, ROM normal, no CVA tenderness. Abdomen: Soft, non-tender, bowel sounds active all four quadrants, no masses, no organomegaly. Surgical incision the one in the midline and one on the right side with no sign of bleeding hematoma or hemorrhage Extremities: Extremities normal, atraumatic, no cyanosis or edema. Pulses: 2+ and symmetric. Skin: Skin color, texture, tugor normal, no rashes or lesions. Neurologic: Alert oriented x3 cranial nerves II through XII intact, no motor deficit, no abnormal balance or gait. ASSESSMENT AND PLAN 1 post laparotomy with right hemicolectomy: Patient stable post surgery continue to watch hemodynamic status continue pain management with epidural this point GI DVT pulmonary prophylaxis protocol. Pain control will be transitioned to IV Dilaudid. 2 right-sided colon cancer: Not a clear whether it's involving the lymph node or not was diagnosed as stage IIb by colonoscopy and biopsy patient is seen oncology will need follow-up with oncology after the final pathology from his surgical site done to determine further management. 3 severe BPH with urinary retention: Patient have Lagunas catheter and we will add Flomax 0.4 mg a day from now on. 4 chronic history of nicotine dependency and smoking. Start nicotine patch 14 mg daily. 5 mild hyperglycemia: On diet control only Accu-Chek with sliding scale coverage and be done. 6 GI prophylaxis: Patient be on pantoprazole IV. 7 DVT prophylaxis: Patient be on heparin subcutaneous. 8 pain management: On epidural anesthesia. CODE STATUS: Full code. DISCHARGE PLAN Home. Impression and plan of care have been directed as dictated by the signing physician. Rayna Godinez nurse practitioner acting as scribe for signing physician. Objective - Vital Signs Vital signs: Vital Signs Temp 98.8 F 03/31/20 08:02 Pulse 100 03/31/20 01:05 Resp 12 03/31/20 08:02 BP 130/73 03/31/20 08:02 Pulse Ox 93 L 03/31/20 08:02 Intake & Output 03/30/20 03/31/20 03/31/20 18:59 06:59 18:59 Intake Total 1050 100 Output Total 900 164 Balance 1050 -800 -164 Intake: Intake, IV Titration 600 Amount D5-0.45% NaCl with KCl 600 20Meq/l 1,000 ml @ 100 mls/hr IV .Q10H [facility] Rx#: [id number] Oral 450 100 Output: Urine 900 164 Other: Voiding Method Indwelling Catheter Indwelling Catheter # Voids 2 - Labs CBC & Chem 7: 03/30/20 06:08 03/30/20 06:08 Labs: Abnormal Lab Results - Last 24 Hours (Table) 03/30/20 Range/Units 06:08 Sodium 134 L (135-145) mmol/L Glucose 114 H (70-110) mg/dL Calcium 8.4 L (8.7-10.3) mg/dL Total Protein 4.7 L (6.2-8.2) g/dL Albumin 3.20 L (3.80-4.90) g/dL Globulin 1.5 L (1.6-3.3) g/dL
--- NOTE | 2020-03-31 14:51 | P.PN ---
Subjective Progress Note Date: 03/31/20 Principal diagnosis: Status post right hemicolectomy The patient is doing well. Tolerating a diet. Passing small amounts of flatus. He still belching but not as much as preoperatively. Pain is controlled with a combination of pain pills and some IV medication. Objective - Vital Signs Vital signs: Vital Signs Temp 98.8 F 03/31/20 12:34 Pulse 100 03/31/20 01:05 Resp 24 03/31/20 12:34 BP 121/67 03/31/20 12:34 Pulse Ox 96 03/31/20 12:34 Intake & Output 03/30/20 03/31/20 03/31/20 18:59 06:59 18:59 Intake Total 1050 100 200 Output Total 900 614 Balance 1050 -800 -414 Intake: Intake, IV Titration 600 Amount D5-0.45% NaCl with KCl 600 20Meq/l 1,000 ml @ 100 mls/hr IV .Q10H [facility] Rx#: [id number] Oral 450 100 200 Output: Urine 900 614 Other: Voiding Method Indwelling Catheter Indwelling Catheter # Voids 2 3 - Constitutional General appearance: Present: cooperative, no acute distress - Respiratory Respiratory: bilateral: diminished (Mildly at the bases), rhonchi (Clear somewhat with cough) - Cardiovascular Rhythm: regular - Gastrointestinal General gastrointestinal: Present: normal bowel sounds, soft Localized gastrointestinal: surgical scar: diffuse (Incision intact clean and dry) - Labs CBC & Chem 7: 03/30/20 06:08 03/30/20 06:08 Assessment and Plan (1) Colon cancer Current Visit: Yes Status: Acute Code(s): C18.9 - MALIGNANT NEOPLASM OF COLON, UNSPECIFIED SNOMED Code(s): 051929950 (2) Atelectasis Current Visit: Yes Status: Acute Code(s): J98.11 - ATELECTASIS SNOMED Code(s): 34461714 Plan: The patient is progressing well. Encourage incentive spirometry and activity. We'll control pain. Await pathology.
[2020-03-31] MEDS: HYDROmorphone 0.5 MG/0.5 ML SYRINGE IVP PRN (23:04)
[2020-04-01] MEDS: HYDROcodone/APAP 5-325MG 1 EACH TAB PO PRN ×3 (03:25→21:29)
[2020-04-01] MEDS: D5-0.45% NACL WITH KCL 20MEQ/L 1,000 ML IV SCH ×3 (03:26→21:34)
[2020-04-01] MEDS: TAMSULOSIN 0.4 MG CAP.ER.24H PO SCH (08:35)
[2020-04-01] MEDS: NICOTINE 14MG/24HR PATCH TRANSDERM SCH (08:35)
[2020-04-01] MEDS: HEPARIN SODIUM,PORCINE 5,000 UNIT/ML 1 ML VIAL SQ SCH ×3 (08:37→23:46)
[2020-04-01] MEDS: PANTOPRAZOLE 40 MG/10 ML VIAL IV SCH (08:38)
[2020-04-01] MEDS: HYDROmorphone 0.5 MG/0.5 ML SYRINGE IVP PRN (08:38)
--- NOTE | 2020-04-01 13:38 | CT ---
EXAMINATION TYPE: CT angio chest DATE OF EXAM: 04/01/2020 COMPARISON: None HISTORY: Post op fever and hypoxia CT DLP: 257.3 mGycm CONTRAST: CT chest with contrast and 3D reconstruction with MIP imaging is performed with IV Contrast, patient injected with 100 mL of Isovue 370. Contrast-enhanced CT of the chest was performed through the course of the pulmonary arteries with cassius g and mediastinal window settings submitted. 3D reconstruction with MIP imaging was also performed. PULMONARY ARTERIES: The pulmonary arteries and their major tributaries are patent. I do not see magdy dence for sizable filling defect to suggest pulmonary embolic process. LUNGS: There is moderate right lower lobe atelectasis and/or infiltrate with small effusion. The promise flaco of the lungs are clear. No evidence for pneumothorax. MEDIASTINUM: Small amount of a pneumomediastinum noted. Thoracic aorta is of normal caliber,however, evaluation is limited given timing of the contrast bolus. If there is concern for thoracic aortic pa thology consider DEDRICK. Correlate clinically . The heart is not enlarged. No evidence for mediastinal mass. No mediastinal lymph nodes greater than 1cm. HILAR STRUCTURES: No evidence for mass. No hilar lymph nodes greater than 1 cm. UPPER ABDOMEN: Pneumoperitoneum compatible with the patient's provided history of the surgical interv ention. Small amount of ascites. IMPRESSION: 1. No evidence for Pulmonary embolism at this time. 2.There is moderate right lower lobe atelectasis and/or infiltrate with small effusion.
--- NOTE | 2020-04-01 13:41 | P.PN ---
Subjective Progress Note Date: 04/01/20 HISTORY OF PRESENT ILLNESS 63-year-old male with no primary care physician who apparently has been sufferi ng from significant weight loss with abdominal pain nausea vomiting for over one year become much worse in the last few weeks. Apparently was in to see his daughter who was diagnosed with severe Crohn disease had colostomy and ileostomy with Dr. Pratt and general surgery when the finally common to gastroenterology about his, with her and was brought to the office seen their service and end up being scheduled for elective colonoscopy was attempted first time not successful with poor prep and not been able to advance the scope. Second colonoscopy was done successfully in March 10 the result came back positive for stage IIB adenocarcinoma of the colon apparently large right-sided colon cancer spot along with 2 polyps were removed. Patient was scheduled with Dr. Pozo for follow-up appointment and was referred to Dr. Fuentes oncology with him been very symptomatic had lost over 50 pound has been having sign and symptom of bowel obstruction become urgent matter to go for surgery ALICIA. Patient had his surgery today with attempt of doing robotic surgery and the been conventional with laparoscopy will laparotomy with right sided hemicolectomy along with small bowel inspection with no sign of obstruction. While his in the OR had difficult time advancing Lagunas catheter patient was seen Dr. Herrera and Lagunas was place in and patient be start on Flomax every day. 03/30: The patient has a CRANBERRY SORTER in place for pain control and pain is much improved today. Unfortunately later in the afternoon, CRANBERRY SORTER came out. He has incentive spirometry as bedside but has not used. Patient instructed on use and encouraged to use every hour. He is currently tolerating a low fiber diet. A bdomen soft with mild generalized tenderness. He has been afebrile, heart rate 68, blood pressure 92/47, pulse ox 95% on room air. Discussed smoking cessation and patient will agree to nicotine patch and encouraged to stop smoking after discharge from the hospital. Repeat blood work reveals normal WBC 10.4, hemoglobin 11.9. Sodium 134 otherwise electrolytes and renal function normal. Blood sugar 114. 03/31: The patient has not had a bowel movement since surgery. Plan for increase activity and ambulate in the hallway. 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 Lagunas catheter is to remain in place until he follows up with urology in the office. Abdominal pain controlled. He is tolerating diet. No nausea or vomiting. He has been afebrile, heart rate 100, blood pressure 121/67, pulse ox 96% on room air. Anticipate possible discharge by tomorrow. 04/01: Patient did not have BM yesterday but he is passing gas. He states he saw oncology 2 days prior to his surgery with no need for oncology involvement on this admission. Patient was doing well at the time of evaluation and denying any shortness of breath or chest pain. He was not requiring oxygen with pulse ox is 94% on room air. Tolerating diet with no nausea or vomiting. Received call from his nurse and temperature was 101.2, pulse ox 70%. Patient was placed on 6 L nasal cannula pulse ox 90%. Stat CTA of the chest ordered. It is noted the patient has not been using incentive spirometry and not ambulating as he has been instructed on multiple occasions. REVIEW OF SYSTEMS CONSTITUTIONAL: Well-developed no acute respiratory distress. Denies fever, denies chills. EYES: No icterus sclerae, no conjunctivitis. EARS, NOSE, MOUTH, THROAT, and FACE: No sore throat, lymphadenopathy, carotid bruits or deformity. RESPIRATORY: Reports SOB no cough or wheezes. CARDIOVASCULAR: No CP, Palpitation, PND, Orthopnea, or angina. GASTROINTESTINAL: Mild Abd pain, no Nausea or vomiting, no Diarrhea reports constipation, No GI Bleed, no distention or masses. GENITOURINARY: Negative for Hematuria or UTI, no kidney stones. Urinary obstruction with Lagunas catheter in. INTEGUMENT/BREAST: Negative for any muscular injury with mild osteoarthritis.. HEMATOLOGIC/LYMPHATIC: Negative for bleed or purpura. MUSCULOSKELTAL: Negative for Myalgia or arthralgia. NEURLOGICAL: No LOC, Sz or syncope, blurred vision dizziness or abnormality.. BEHAVIORAL/PSYCH: Negative. ENDOCRINE: Negative. PHYSICAL EXAMINATION General Appearance: Alert, cooperative, no distress, appears stated age. Neck HEENT: Supple, no lymphadenopathy, no thyroid enlargement, no carotid bruits. Lungs: Clear to auscultation without crackles or wheezes no rhonchi, no deformity. Chest Wall: Chest wall normal expansion with deep inspiration no tenderness and no deformity was found on exam, no costochondral pain or discomfort. Heart: Regular rate and rhythm, S1, S2 normal, no murmur, rub or gallop. Back: Symmetric, no curvature, ROM normal, no CVA tenderness. Abdomen: Soft, non-tender, bowel sounds active all four quadrants, no masses, no organomegaly. Surgical incision the one in the midline and one on the right side with no sign of bleeding hematoma or hemorrhage Extremities: Extremities normal, atraumatic, no cyanosis or edema. Pulses: 2+ and symmetric. Skin: Skin color, texture, tugor normal, no rashes or lesions. Neurologic: Alert oriented x3 cranial nerves II through XII intact, no motor deficit, no abnormal balance or gait. ASSESSMENT AND PLAN 1 post laparotomy with right hemicolectomy: Patient stable post surgery continue to watch hemodynamic status continue pain management with epidural this point GI DVT pulmonary prophylaxis protocol. Pain control will be transitioned to IV Dilaudid. 2 right-sided colon cancer: Not a clear whether it's involving the lymph node or not was diagnosed as stage IIb by colonoscopy and biopsy patient is seen o ncology will need follow-up with oncology after the final pathology from his surgical site done to determine further management. 3 severe BPH with urinary retention: Patient have Lagunas catheter and we will add Flomax 0.4 mg a day from now on. 4 chronic history of nicotine dependency and smoking. Start nicotine patch 14 mg daily. 5 mild hyperglycemia: On diet control only Accu-Chek with sliding scale coverage and be done. 6 hypoxia. CTA of the chest ordered. Repeat lab work ordered. 7 GI prophylaxis: Patient be on pantoprazole IV. 8 DVT prophylaxis: Patient be on heparin subcutaneous. 9 pain management: On epidural anesthesia. CODE STATUS: Full code. DISCHARGE PLAN Home. Impression and plan of care have been directed as dictated by the signing physician. Rayna Godinez nurse practitioner acting as scribe for signing physician. Objective - Vital Signs Vital signs: Vital Signs Temp 98.5 F 04/01/20 07:25 Pulse 101 H 04/01/20 01:00 Resp 16 04/01/20 07:25 BP 125/80 04/01/20 07:25 Pulse Ox 94 L 04/01/20 07:25 Intake & Output 03/31/20 04/01/20 04/01/20 18:59 06:59 18:59 Intake Total 200 200 Output Total 614 3200 Balance -414 -3000 Intake: Oral 200 200 Output: Urine 614 3200 Coude 1600 Other: Voiding Method Indwelling Catheter # Voids 3 - Labs CBC & Chem 7: 03/30/20 06:08 03/30/20 06:08
[2020-04-01] MEDS ORDERED: IPRATROPIUM-ALBUTEROL 3 ML NEB INHALATION PRN (13:51)
--- NOTE | 2020-04-01 15:00 | P.PN ---
Subjective Progress Note Date: 04/01/20 Principal diagnosis: Status post right hemicolectomy The patient is postoperative day 3 right hemicolectomy for obstructing tumor. He began to be tachycardic and hypoxic today. He went for a CTA which did not reveal any evidence of pulmonary embolism. There is some atelectasis. He feels a little short of breath. He is belching. Passing a small amount of flatus. Tolerating a diet. Pain is controlled. Objective - Vital Signs Vital signs: Vital Signs Temp 101.2 F H 04/01/20 12:43 Pulse 101 H 04/01/20 01:00 Resp 23 04/01/20 12:43 BP 158/93 04/01/20 12:43 Pulse Ox 92 L 04/01/20 12:43 Intake & Output 03/31/20 04/01/20 04/01/20 18:59 06:59 18:59 Intake Total 200 200 400 Output Total 614 3200 1800 Balance -414 -3000 -1400 Intake: Oral 200 200 400 Output: Urine 614 3200 1800 [place] 1600 Other: Voiding Method Indwelling Catheter Indwelling Catheter # Voids 3 3 - Constitutional General appearance: Present: cooperative, no acute distress - Respiratory Respiratory: bilateral: CTA, diminished (Mildly at the bases) - Cardiovascular Rhythm: other (Tachycardic) - Gastrointestinal General gastrointestinal: Present: decreased bowel sounds, distended (No significant distention), soft Localized gastrointestinal: surgical scar: diffuse (Dressings clean and dry) - Genitourinary Genitourinary Comment(s): Clear yellow urine in the catheter - Labs CBC & Chem 7: 03/30/20 06:08 03/30/20 06:08 Assessment and Plan (1) Colon cancer Current Visit: Yes Status: Acute Code(s): C18.9 - MALIGNANT NEOPLASM OF COLON, UNSPECIFIED SNOMED Code(s): 591269879 (2) Atelectasis Current Visit: Yes Status: Acute Code(s): J98.11 - ATELECTASIS SNOMED Code(s): 16571547 Plan: Encouraged incentive spirometry. Encouraged ambulation. He is receiving supplemental oxygen. No signs of pulmonary embolism on the CTA. Monitor closely. Progressing slowly.
[2020-04-01] MEDS: LEVOFLOXACIN 750MG-D5W PMX 750 MG in DEXTROSE/WATER 1 150ML.BAG IVPB SCH (15:03)
[2020-04-01 15:20] LABS: HCT 40.8 % (39.0-53.0); HGB 13.3 gm/dL (13.0-17.5); MCH 30.1 pg (25.0-35.0); MCHC 32.6 g/dL (31.0-37.0); MCV 92.6 fL (80.0-100.0); Mean Platelet Volume 7.3; Platelet Count 316 k/uL (150-450); RDW 13.8 % (11.5-15.5); WBC 16.3 k/uL (3.8-10.6)
[2020-04-01 15:21] LABS: ALT 15 U/L (4-49); AST 33 U/L (17-59); African American GFR (CKD) >90 (>60 ml/min/1.73 sqM); Albumin/Globulin Ratio 1.2; Alkaline Phosphatase 55 U/L (38-126); Anion Gap 6 mmol/L; Blood Urea Nitrogen 10 mg/dL (9-20); Calcium 8.7 mg/dL (8.4-10.2); Carbon Dioxide 24 mmol/L (22-30); Chloride 97 mmol/L (98-107); Globulin 2.6 g/dL; Glucose 110 mg/dL (74-99); Non-African American GFR(CKD) >90 (>60 ml/min/1.73 sqM); Potassium 4.5 mmol/L (3.5-5.1); Sodium 127 mmol/L (137-145); Total Bilirubin 1.1 mg/dL (0.2-1.3); Total Protein 5.6 g/dL (6.3-8.2)
[2020-04-01] MEDS: IPRATROPIUM-ALBUTEROL 3 ML NEB INHALATION SCH ×2 (16:34→20:48)
[2020-04-01] MEDS: METOPROLOL TARTRATE 25 MG TAB PO SCH ×2 (16:46→21:32)
[2020-04-01 17:47] LABS: Appearance,Urine Clear (Clear); Bilirubin,Urine Negative (Negative); Blood,Urine Small (Negative); Color,Urine Yellow; Glucose,Urine (UA) Negative (Negative); Ketones,Urine 1+ (Negative); Leukocyte Esterase,Urine Negative (Negative); Mucus,Urine Rare /hpf; Nitrite,Urine Negative (Negative); PH, Urine 5.5 (5.0-8.0); Protein,Urine Negative (Negative); RBC,Urine 8 /hpf (0-5); Specific Gravity,Urine 1.042 (1.001-1.035); Squamous Epithelial Cell,Urine <1 /hpf (0-4); Urobilinogen,Urine <2.0 mg/dL (<2.0); WBC,Urine 4 /hpf (0-5)
[2020-04-01] MEDS: ONDANSETRON 4 MG/2 ML VIAL IVP PRN (18:12)
[2020-04-02] MEDS: HYDROcodone/APAP 5-325MG 1 EACH TAB PO PRN ×3 (05:46→17:24)
[2020-04-02 06:20] LABS: MCH 30.5 pg (25.0-35.0); MCHC 32.5 g/dL (31.0-37.0); MCV 93.9 fL (80.0-100.0); Mean Platelet Volume 7.4; Platelet Count 284 k/uL (150-450); RBC 3.94 m/uL (4.30-5.90); WBC 9.5 k/uL (3.8-10.6)
[2020-04-02] MEDS: D5-0.45% NACL WITH KCL 20MEQ/L 1,000 ML IV SCH (07:17)
--- NOTE | 2020-04-02 08:27 | P.PN ---
Subjective Progress Note Date: 04/02/20 Principal diagnosis: Status post right hemicolectomy The patient is feeling better this morning. Denies shortness of breath. Using his incentive spirometry better. [id number] mL's. He is passing flatus. Objective - Vital Signs Vital signs: Vital Signs Temp 97.6 F 04/02/20 07:00 Pulse 82 04/02/20 07:00 Resp 20 04/02/20 07:00 BP 90/59 04/02/20 07:00 Pulse Ox 97 04/02/20 07:00 Intake & Output 04/01/20 04/02/20 04/02/20 18:59 06:59 18:59 Intake Total 400 Output Total 3100 Balance -2700 Intake: Oral 400 Output: Urine 3100 Other: Voiding Method Indwelling Catheter Indwelling Catheter # Voids 3 - Constitutional General appearance: Present: cooperative, no acute distress - Respiratory Respiratory: bilateral: CTA, diminished (Mildly at the bases) - Cardiovascular Rhythm: regular - Gastrointestinal General gastrointestinal: Present: normal bowel sounds, soft Localized gastrointestinal: surgical scar: diffuse (Incisions intact clean and dry) - Labs CBC & Chem 7: 04/02/20 05:45 04/01/20 14:34 Labs: Abnormal Lab Results - Last 24 Hours (Table) 04/01/20 04/01/20 04/01/20 Range/Units 14:34 14:34 17:27 WBC 16.3 H (3.8-10.6) k/uL RBC (4.30-5.90) m/uL Hgb (13.0-17.5) gm/dL Hct (39.0-53.0) % Sodium 127 L (137-145) mmol/L Chloride 97 L (98-107) mmol/L Creatinine 0.64 L (0.66-1.25) mg/dL Glucose 110 H (74-99) mg/dL Total Protein 5.6 L (6.3-8.2) g/dL Albumin 3.0 L (3.5-5.0) g/dL Ur Specific [place] 1.042 H (1.001-1.035) Urine Ketones 1+ H (Negative) Urine Blood Small H (Negative) Urine RBC 8 H (0-5) /hpf Urine Mucus Rare H (None) /hpf 04/02/20 Range/Units 05:45 WBC (3.8-10.6) k/uL RBC 3.94 L (4.30-5.90) m/uL Hgb 12.0 L (13.0-17.5) gm/dL Hct 37.0 L (39.0-53.0) % Sodium (137-145) mmol/L Chloride (98-107) mmol/L Creatinine (0.66-1.25) mg/dL Glucose (74-99) mg/dL Total Protein (6.3-8.2) g/dL Albumin (3.5-5.0) g/dL Ur Specific [place] (1.001-1.035) Urine Ketones (Negative) Urine Blood (Negative) Urine RBC (0-5) /hpf Urine Mucus (None) /hpf Assessment and Plan (1) Colon cancer Current Visit: Yes Status: Acute Code(s): C18.9 - MALIGNANT NEOPLASM OF COLON, UNSPECIFIED SNOMED Code(s): 100536836 (2) Atelectasis Current Visit: Yes Status: Acute Code(s): J98.11 - ATELECTASIS SNOMED Code(s): 64754629 Plan: The patient's leukocytosis, shortness of breath and atelectasis appear to be improving. Doing better with incentive incentive spirometry. We'll attempt to wean the oxygen. Increase activity as tolerated. Remove the Lagunas catheter in the morning. Progressing slowly
[2020-04-02] MEDS: IPRATROPIUM-ALBUTEROL 3 ML NEB INHALATION SCH ×4 (08:36→20:20)
[2020-04-02] MEDS: NICOTINE 14MG/24HR PATCH TRANSDERM SCH (08:58)
[2020-04-02] MEDS: METOPROLOL TARTRATE 25 MG TAB PO SCH ×2 (08:58→20:07)
[2020-04-02] MEDS: TAMSULOSIN 0.4 MG CAP.ER.24H PO SCH (08:58)
[2020-04-02] MEDS: HEPARIN SODIUM,PORCINE 5,000 UNIT/ML 1 ML VIAL SQ SCH ×3 (08:59→23:18)
[2020-04-02] MEDS: PANTOPRAZOLE 40 MG/10 ML VIAL IV SCH (09:00)
[2020-04-02 10:16] LABS: African American GFR (CKD) 116.4 (60.0-200.0); Albumin 3.1 g/dL (3.80-4.90); Albumin/Globulin Ratio 1.63 (1.60-3.17); Anion Gap 8.2 mmol/L (4.00-12.00); BUN/Creat Ratio 18.57 Ratio (12.00-20.00); Calcium 9.2 mg/dL (8.7-10.3); Carbon Dioxide 26.8 mmol/L (21.6-31.8); Globulin 1.9 g/dL (1.6-3.3); Non-African American GFR(CKD) 100.4 (60.0-200.0); Potassium 4.6 mmol/L (3.5-5.5); Total Bilirubin 0.8 mg/dL (0.2-1.2)
--- NOTE | 2020-04-02 13:10 | P.PN ---
Subjective Progress Note Date: 04/02/20 HISTORY OF PRESENT ILLNESS 63-year-old male with no primary care physician who apparently has been sufferi ng from significant weight loss with abdominal pain nausea vomiting for over one year become much worse in the last few weeks. Apparently was in to see his daughter who was diagnosed with severe Crohn disease had colostomy and ileostomy with Dr. Pratt and general surgery when the finally common to gastroenterology about his, with her and was brought to the office seen their service and end up being scheduled for elective colonoscopy was attempted first time not successful with poor prep and not been able to advance the scope. Second colonoscopy was done successfully in March 10 the result came back positive for stage IIB adenocarcinoma of the colon apparently large right-sided colon cancer spot along with 2 polyps were removed. Patient was scheduled with Dr. Pozo for follow-up appointment and was referred to Dr. Fuentes oncology with him been very symptomatic had lost over 50 pound has been having sign and symptom of bowel obstruction become urgent matter to go for surgery ALICIA. Patient had his surgery today with attempt of doing robotic surgery and the been conventional with laparoscopy will laparotomy with right sided hemicolectomy along with small bowel inspection with no sign of obstruction. While his in the OR had difficult time advancing Lagunas catheter patient was seen Dr. Herrera and Lagunas was place in and patient be start on Flomax every day. 03/30: The patient has a VIDEO EDITING INTERN in place for pain control and pain is much improved today. Unfortunately later in the afternoon, VIDEO EDITING INTERN came out. He has incentive spirometry as bedside but has not used. Patient instructed on use and encouraged to use every hour. He is currently tolerating a low fiber diet. A bdomen soft with mild generalized tenderness. He has been afebrile, heart rate 68, blood pressure 92/47, pulse ox 95% on room air. Discussed smoking cessation and patient will agree to nicotine patch and encouraged to stop smoking after discharge from the hospital. Repeat blood work reveals normal WBC 10.4, hemoglobin 11.9. Sodium 134 otherwise electrolytes and renal function normal. Blood sugar 114. 03/31: The patient has not had a bowel movement since surgery. Plan for increase activity and ambulate in the hallway. 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 Lagunas catheter is to remain in place until he follows up with urology in the office. Abdominal pain controlled. He is tolerating diet. No nausea or vomiting. He has been afebrile, heart rate 100, blood pressure 121/67, pulse ox 96% on room air. Anticipate possible discharge by tomorrow. 04/01: Patient did not have BM yesterday but he is passing gas. He states he saw oncology 2 days prior to his surgery with no need for oncology involvement on this admission. Patient was doing well at the time of evaluation and denying any shortness of breath or chest pain. He was not requiring oxygen with pulse ox is 94% on room air. Tolerating diet with no nausea or vomiting. Received call from his nurse and temperature was 101.2, pulse ox 70%. Patient was placed on 6 L nasal cannula pulse ox 90%. Stat CTA of the chest ordered. It is noted the patient has not been using incentive spirometry and not ambulating as he has been instructed on multiple occasions. 04/02: CTA of the chest showed no pulmonary embolism. Moderate right lower lobe atelectasis or infiltrate and small effusion. Patient was started on IV Levaquin yesterday for possible pneumonia along with nebulizer treatments. He has been encouraged to ambulate. He is up in a chair today. Patient is also encouraged to use incentive spirometry. Abdominal pain is controlled. He is tolerating diet. He was afebrile overnight, heart rate 91, blood pressure 95/59, pulse ox 97% on 3 L nasal cannula. Repeat blood work reveals CMP unremarkable. Hemoglobin is 12 and WBC 9.5. Urinalysis was clear with blood small, RBCs 8. No sign of UTI. Biopsy report reveals colon cancer, adenocarcinoma. REVIEW OF SYSTEMS CONSTITUTIONAL: Well-developed. Denies fever, denies chills. EYES: No icterus sclerae, no conjunctivitis. EARS, NOSE, MOUTH, THROAT, and FACE: No sore throat, lymphadenopathy, carotid bruits or deformity. RESPIRATORY: Reports SOB no cough or wheezes. CARDIOVASCULAR: No CP, Palpitation, PND, Orthopnea, or angina. GASTROINTESTINAL: Mild Abd pain, no Nausea or vomiting, no Diarrhea reports constipation, No GI Bleed, no distention or masses. GENITOURINARY: Negative for Hematuria or UTI, no kidney stones. Urinary obstruction with Lagnuas catheter in. INTEGUMENT/BREAST: Negative for any muscular injury with mild osteoarthritis.. HEMATOLOGIC/LYMPHATIC: Negative for bleed or purpura. MUSCULOSKELTAL: Negative for Myalgia or arthralgia. NEURLOGICAL: No LOC, Sz or syncope, blurred vision dizziness or abnormality.. BEHAVIORAL/PSYCH: Negative. ENDOCRINE: Negative. PHYSICAL EXAMINATION General Appearance: Alert, cooperative, no distress, appears stated age. Neck HEENT: Supple, no lymphadenopathy, no thyroid enlargement, no carotid bruits. Lungs: Clear to auscultation without crackles or wheezes no rhonchi, no deformity. Chest Wall: Chest wall normal expansion with deep inspiration no tenderness and no deformity was found on exam, no costochondral pain or discomfort. Heart: Regular rate and rhythm, S1, S2 normal, no murmur, rub or gallop. Back: Symmetric, no curvature, ROM normal, no CVA tenderness. Abdomen: Soft, non-tender, bowel sounds active all four quadrants, no masses, no organomegaly. Surgical incision the one in the midline and one on the right side with no sign of bleeding hematoma or hemorrhage. Lagunas catheter in place. Extremities: Extremities normal, atraumatic, no cyanosis or edema. Pulses: 2+ and symmetric. Skin: Skin color, texture, tugor normal, no rashes or lesions. Neurologic: Alert oriented x3 cranial nerves II through XII intact, no motor deficit, no abnormal balance or gait. ASSESSMENT AND PLAN 1 post laparotomy with right hemicolectomy. Continue current pain management, encourage activity and incentive spirometry. 2 right-sided colon cancer: Not a clear whether it's involving the lymph node or not was diagnosed as stage IIb by colonoscopy and biopsy patient is seen oncology will need follow-up with oncology after the final pathology from his surgical site done to determine further management. 3 acute hypoxic respiratory failure secondary to possible pneumonia versus atelectasis. Patient started on Levaquin 750 mg IV daily, DuoNeb treatments every 2 hours as needed and scheduled 4 times daily. Encourage incentive spirometry and increase activity. 4 severe BPH with urinary retention: Patient have Lagunas catheter , continue Flomax 0.4 mg a day. 5 chronic history of nicotine dependency and smoking. Start nicotine patch 14 mg daily. 6 mild hyperglycemia: On diet control only Accu-Chek with sliding scale coverage and be done. 7 hypoxia. CTA of the chest ordered. Repeat lab work ordered. 8 GI prophylaxis: Patient be on pantoprazole IV. 9 DVT prophylaxis: Patient be on heparin subcutaneous. CODE STATUS: Full code. DISCHARGE PLAN Home. Impression and plan of care have been directed as dictated by the signing physician. Rayna Godinez nurse practitioner acting as scribe for signing physician. Objective - Vital Signs Vital signs: Vital Signs Temp 97.6 F 04/02/20 07:00 Pulse 92 04/02/20 08:50 Resp 20 04/02/20 07:00 BP 90/59 04/02/20 07:00 Pulse Ox 97 04/02/20 07:00 Intake & Output 04/01/20 04/02/20 04/02/20 18:59 06:59 18:59 Intake Total 400 Output Total 3100 Balance -2700 Intake: Oral 400 Output: Urine 3100 Other: Voiding Method Indwelling Catheter Indwelling Catheter Indwelling Catheter # Voids 3 - Labs CBC & Chem 7: 04/02/20 05:45 04/02/20 05:45 Labs: Abnormal Lab Results - Last 24 Hours (Table) 04/01/20 04/01/20 04/01/20 Range/Units 14:34 14:34 17:27 WBC 16.3 H (3.8-10.6) k/uL RBC (4.30-5.90) m/uL Hgb (13.0-17.5) gm/dL Hct (39.0-53.0) % Sodium 127 L (137-145) mmol/L Chloride 97 L (98-107) mmol/L Creatinine 0.64 L (0.66-1.25) mg/dL Glucose 110 H (74-99) mg/dL Total Protein 5.6 L (6.3-8.2) g/dL Albumin 3.0 L (3.5-5.0) g/dL Ur Specific [place] 1.042 H (1.001-1.035) Urine Ketones 1+ H (Negative) Urine Blood Small H (Negative) Urine RBC 8 H (0-5) /hpf Urine Mucus Rare H (None) /hpf 04/02/20 Range/Units 05:45 WBC (3.8-10.6) k/uL RBC 3.94 L (4.30-5.90) m/uL Hgb 12.0 L (13.0-17.5) gm/dL Hct 37.0 L (39.0-53.0) % Sodium (137-145) mmol/L Chloride (98-107) mmol/L Creatinine (0.66-1.25) mg/dL Glucose (74-99) mg/dL Total Protein (6.3-8.2) g/dL Albumin (3.5-5.0) g/dL Ur Specific [place] (1.001-1.035) Urine Ketones (Negative) Urine Blood (Negative) Urine RBC (0-5) /hpf Urine Mucus (None) /hpf
[2020-04-02] MEDS: LEVOFLOXACIN 750MG-D5W PMX 750 MG in DEXTROSE/WATER 1 150ML.BAG IVPB SCH (17:23)
[2020-04-02] MEDS: ONDANSETRON 4 MG/2 ML VIAL IVP PRN (20:07)
[2020-04-03] MEDS: IPRATROPIUM-ALBUTEROL 3 ML NEB INHALATION SCH ×4 (07:07→21:08)
[2020-04-03] MEDS: HYDROcodone/APAP 5-325MG 1 EACH TAB PO PRN ×3 (07:09→21:20)
[2020-04-03] MEDS: HEPARIN SODIUM,PORCINE 5,000 UNIT/ML 1 ML VIAL SQ SCH ×3 (07:10→23:31)
[2020-04-03] MEDS: TAMSULOSIN 0.4 MG CAP.ER.24H PO SCH (09:04)
[2020-04-03] MEDS: PANTOPRAZOLE 40 MG TABLET PO SCH (09:05)
[2020-04-03] MEDS: NICOTINE 14MG/24HR PATCH TRANSDERM SCH (09:05)
[2020-04-03] MEDS: METOPROLOL TARTRATE 25 MG TAB PO SCH ×2 (09:10→21:20)
--- NOTE | 2020-04-03 11:12 | P.PN ---
Subjective Progress Note Date: 04/03/20 HISTORY OF PRESENT ILLNESS 63-year-old male with no primary care physician who apparently has been sufferi ng from significant weight loss with abdominal pain nausea vomiting for over one year become much worse in the last few weeks. Apparently was in to see his daughter who was diagnosed with severe Crohn disease had colostomy and ileostomy with Dr. Pratt and general surgery when the finally common to gastroenterology about his, with her and was brought to the office seen their service and end up being scheduled for elective colonoscopy was attempted first time not successful with poor prep and not been able to advance the scope. Second colonoscopy was done successfully in March 10 the result came back positive for stage IIB adenocarcinoma of the colon apparently large right-sided colon cancer spot along with 2 polyps were removed. Patient was scheduled with Dr. Pozo for follow-up appointment and was referred to Dr. Fuentes oncology with him been very symptomatic had lost over 50 pound has been having sign and symptom of bowel obstruction become urgent matter to go for surgery ALICIA. Patient had his surgery today with attempt of doing robotic surgery and the been conventional with laparoscopy will laparotomy with right sided hemicolectomy along with small bowel inspection with no sign of obstruction. While his in the OR had difficult time advancing Lagunas catheter patient was seen Dr. Herrera and Lagunas was place in and patient be start on Flomax every day. 03/30: The patient has a SUPERVISING DEPUTY in place for pain control and pain is much improved today. Unfortunately later in the afternoon, SUPERVISING DEPUTY came out. He has incentive spirometry as bedside but has not used. Patient instructed on use and encouraged to use every hour. He is currently tolerating a low fiber diet. A bdomen soft with mild generalized tenderness. He has been afebrile, heart rate 68, blood pressure 92/47, pulse ox 95% on room air. Discussed smoking cessation and patient will agree to nicotine patch and encouraged to stop smoking after discharge from the hospital. Repeat blood work reveals normal WBC 10.4, hemoglobin 11.9. Sodium 134 otherwise electrolytes and renal function normal. Blood sugar 114. 03/31: The patient has not had a bowel movement since surgery. Plan for increase activity and ambulate in the hallway. 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 Lagunas catheter is to remain in place until he follows up with urology in the office. Abdominal pain controlled. He is tolerating diet. No nausea or vomiting. He has been afebrile, heart rate 100, blood pressure 121/67, pulse ox 96% on room air. Anticipate possible discharge by tomorrow. 04/01: Patient did not have BM yesterday but he is passing gas. He states he saw oncology 2 days prior to his surgery with no need for oncology involvement on this admission. Patient was doing well at the time of evaluation and denying any shortness of breath or chest pain. He was not requiring oxygen with pulse ox is 94% on room air. Tolerating diet with no nausea or vomiting. Received call from his nurse and temperature was 101.2, pulse ox 70%. Patient was placed on 6 L nasal cannula pulse ox 90%. Stat CTA of the chest ordered. It is noted the patient has not been using incentive spirometry and not ambulating as he has been instructed on multiple occasions. 04/02: CTA of the chest showed no pulmonary embolism. Moderate right lower lobe atelectasis or infiltrate and small effusion. Patient was started on IV Levaquin yesterday for possible pneumonia along with nebulizer treatments. He has been encouraged to ambulate. He is up in a chair today. Patient is also encouraged to use incentive spirometry. Abdominal pain is controlled. He is tolerating diet. He was afebrile overnight, heart rate 91, blood pressure 95/59, pulse ox 97% on 3 L nasal cannula. Repeat blood work reveals CMP unremarkable. Hemoglobin is 12 and WBC 9.5. Urinalysis was clear with blood small, RBCs 8. No sign of UTI. Biopsy report reveals colon cancer, adenocarcinoma. 04/03: Patient's shortness of breath is significantly improved and now on room air pulse oxing 95%. His been afebrile, heart rate 84, blood pressure 101/57. Anticipate patient will be discharged home by general surgery today. We'll send prescription for Levaquin and medication reconciliation has been reviewed. Patient is clear for discharge from medicine. REVIEW OF SYSTEMS CONSTITUTIONAL: Well-developed. Denies fever, denies chills. EYES: No icterus sclerae, no conjunctivitis. EARS, NOSE, MOUTH, THROAT, and FACE: No sore throat, lymphadenopathy, carotid bruits or deformity. RESPIRATORY: Denies SOB no cough or wheezes. CARDIOVASCULAR: No CP, Palpitation, PND, Orthopnea, or angina. GASTROINTESTINAL: Mild Abd pain, no Nausea or vomiting, no Diarrhea reports constipation, No GI Bleed, no distention or masses. GENITOURINARY: Negative for Hematuria or UTI, no kidney stones. Urinary obstruction with Lagunas catheter in. INTEGUMENT/BREAST: Negative for any muscular injury with mild osteoarthritis.. HEMATOLOGIC/LYMPHATIC: Negative for bleed or purpura. MUSCULOSKELTAL: Negative for Myalgia or arthralgia. NEURLOGICAL: No LOC, Sz or syncope, blurred vision dizziness or abnormality.. BEHAVIORAL/PSYCH: Negative. ENDOCRINE: Negative. PHYSICAL EXAMINATION General Appearance: Alert, cooperative, no distress, appears stated age. Neck HEENT: Supple, no lymphadenopathy, no thyroid enlargement, no carotid bruits. Lungs: Clear to auscultation without crackles or wheezes no rhonchi, no deformity. Chest Wall: Chest wall normal expansion with deep inspiration no tenderness and no deformity was found on exam, no costochondral pain or discomfort. Heart: Regular rate and rhythm, S1, S2 normal, no murmur, rub or gallop. Back: Symmetric, no curvature, ROM normal, no CVA tenderness. Abdomen: Soft, non-tender, bowel sounds active all four quadrants, no masses, no organomegaly. Surgical incision the one in the midline and one on the right side with no sign of bleeding hematoma or hemorrhage. Lagunas catheter in place. Extremities: Extremities normal, atraumatic, no cyanosis or edema. Pulses: 2+ and symmetric. Skin: Skin color, texture, tugor normal, no rashes or lesions. Neurologic: Alert oriented x3 cranial nerves II through XII intact, no motor deficit, no abnormal balance or gait. ASSESSMENT AND PLAN 1 post laparotomy with right hemicolectomy. Continue current pain management, encourage activity and incentive spirometry. 2 right-sided colon cancer: Not a clear whether it's involving the lymph node or not was diagnosed as stage IIb by colonoscopy and biopsy patient is seen oncology will need follow-up with oncology after the final pathology from his surgical site done to determine further management. 3 acute hypoxic respiratory failure secondary to possible pneumonia versus atelectasis. Patient started on Levaquin 750 mg IV daily, transition for home, DuoNeb treatments every 2 hours as needed and scheduled 4 times daily. Encourag e incentive spirometry and increase activity. 4 severe BPH with urinary retention: Patient have Lagunas catheter , continue Flomax 0.4 mg a day. 5 chronic history of nicotine dependency and smoking. Start nicotine patch 14 mg daily. 6 mild hyperglycemia: On diet control only Accu-Chek with sliding scale coverage and be done. 7 hypoxia. CTA of the chest ordered. Repeat lab work ordered. 8 GI prophylaxis: Patient be on pantoprazole IV. 9 DVT prophylaxis: Patient be on heparin subcutaneous. CODE STATUS: Full code. DISCHARGE PLAN Home. Impression and plan of care have been directed as dictated by the signing physician. Rayna Godinez nurse practitioner acting as scribe for signing physi srinath. Objective - Vital Signs Vital signs: Vital Signs Temp 98.1 F 04/03/20 06:49 Pulse 80 04/03/20 07:16 Resp 18 04/03/20 06:59 BP 101/57 04/03/20 06:49 Pulse Ox 95 04/03/20 06:49 Intake & Output 04/02/20 04/03/20 04/03/20 18:59 06:59 18:59 Intake Total 980 Balance 980 Intake: Intake, IV Titration 600 Amount D5-0.45% NaCl with KCl 600 20Meq/l 1,000 ml @ 100 mls/hr IV .Q10H [facility] Rx#: [id number] Oral 380 Other: Voiding Method Indwelling Catheter Indwelling Catheter - Labs CBC & Chem 7: 04/02/20 05:45 04/02/20 05:45 Labs: Abnormal Lab Results - Last 24 Hours (Table) 04/02/20 Range/Units 05:45 Total Protein 5.0 L (6.2-8.2) g/dL Albumin 3.10 L (3.80-4.90) g/dL Microbiology - Last 24 Hours (Table) 04/01/20 15:30 Blood Culture - Preliminary Blood No Growth after 24 hours 04/01/20 15:17 Blood Culture - Preliminary Blood No Growth after 24 hours
--- NOTE | 2020-04-03 13:39 | P.PN ---
Subjective Progress Note Date: 04/03/20 Principal diagnosis: Status post right hemicolectomy The patient is feeling better today. He is tolerating a diet. Pain is controlled. The catheter was removed this morning. He's only voided a small amount of urine. Objective - Vital Signs Vital signs: Vital Signs Temp 97.4 F L 04/03/20 12:21 Pulse 84 04/03/20 11:10 Resp 18 04/03/20 12:21 BP 104/64 04/03/20 12:21 Pulse Ox 98 04/03/20 12:21 Intake & Output 04/02/20 04/03/20 04/03/20 18:59 06:59 18:59 Intake Total 980 200 Balance 980 200 Intake: Intake, IV Titration 600 Amount D5-0.45% NaCl with KCl 600 20Meq/l 1,000 ml @ 100 mls/hr IV .Q10H [facility] Rx#: [id number] Oral 380 200 Other: Voiding Method Indwelling Catheter Indwelling Catheter Indwelling Catheter # Voids 3 - Constitutional General appearance: Present: cooperative, no acute distress - Respiratory Respiratory: bilateral: CTA - Cardiovascular Rhythm: regular - Gastrointestinal General gastrointestinal: Present: normal bowel sounds, soft Localized gastrointestinal: surgical scar: diffuse (Incisions are healing without cellulitis) - Labs CBC & Chem 7: 04/02/20 05:45 04/02/20 05:45 Labs: Microbiology - Last 24 Hours (Table) 04/01/20 15:30 Blood Culture - Preliminary Blood No Growth after 24 hours 04/01/20 15:17 Blood Culture - Preliminary Blood No Growth after 24 hours Assessment and Plan (1) Colon cancer Current Visit: Yes Status: Acute Code(s): C18.9 - MALIGNANT NEOPLASM OF COLON, UNSPECIFIED SNOMED Code(s): 114271212 (2) Atelectasis Current Visit: Yes Status: Acute Code(s): J98.11 - ATELECTASIS SNOMED Code(s): 01717921 Plan: Monitor his voiding today. Increase diet and activity as tolerated. His pathology showed a T3 tumor with negative lymph nodes. This would make him a stage IIb colon cancer. We'll have him follow up with oncology after discharge. Progressing slowly. Likely ready for discharge in the next 1-2 days. Continue incentive spirometry after discharge.
[2020-04-03] MEDS: LEVOFLOXACIN 750MG-D5W PMX 750 MG in DEXTROSE/WATER 1 150ML.BAG IVPB SCH (15:38)
[2020-04-03] MEDS: ONDANSETRON 4 MG/2 ML VIAL IVP PRN (16:03)
[2020-04-03 18:53] VITALS: RESP 18
[2020-04-04 07:54] VITALS: BP 113/71; TEMP 98.6
[2020-04-04] MEDS: IPRATROPIUM-ALBUTEROL 3 ML NEB INHALATION SCH ×2 (08:23→11:43)
[2020-04-04 08:35] VITALS: PULSE 92
[2020-04-04] MEDS: METOPROLOL TARTRATE 25 MG TAB PO SCH (09:31)
[2020-04-04] MEDS: TAMSULOSIN 0.4 MG CAP.ER.24H PO SCH (09:31)
[2020-04-04] MEDS: PANTOPRAZOLE 40 MG TABLET PO SCH (09:31)
[2020-04-04] MEDS: NICOTINE 14MG/24HR PATCH TRANSDERM SCH (09:31)
[2020-04-04] MEDS: HEPARIN SODIUM,PORCINE 5,000 UNIT/ML 1 ML VIAL SQ SCH (09:31)
[2020-04-04] MEDS: HYDROcodone/APAP 5-325MG 1 EACH TAB PO PRN (09:35)
--- NOTE | 2020-04-04 10:43 | P.DS ---
Providers Date of admission: 03/29/20 06:28 Attending physician: Jessica Pozo Consults: 03/29/20 11:25 Consult Physician Routine Consulting Provider: Yoni Thompson Reason/Comments: medical management Do you want consulting provider notified?: Yes Primary care physician: Stated None Hospital Course: 63-year-old male with no primary care physician who apparently has been suffering from significant weight loss with abdominal pain nausea vomiting for over one year become much worse in the last few weeks. Apparently was in to see his daughter who was diagnosed with severe Crohn disease had colostomy and ileostomy with Dr. Pratt and general surgery when the finally common to gastroenterology about his, with her and was brought to the office seen their service and end up being scheduled for elective colonoscopy was attempted first time not successful with poor prep and not been able to advance the scope. Second colonoscopy was done successfully in March 10 the result came back positive for stage IIB adenocarcinoma of the colon apparently large right-sided colon cancer spot along with 2 polyps were removed. Patient was scheduled with Dr. Pozo for follow-up appointment and was referred to Dr. Fuentes oncology with him been very symptomatic had lost over 50 pound has been having sign and symptom of bowel obstruction become urgent matter to go for surgery ALICIA. Patient had his surgery today with attempt of doing robotic surgery and the been conventional with laparoscopy will laparotomy with right sided hemicolectomy along with small bowel inspection with no sign of obstruction. While his in the OR had difficult time advancing Lagunas catheter patient was seen Dr. Herrera and Lagunas was place in and patient be start on Flomax every day. 03/30: The patient has a RETAIL ASSOCIATE MANAGER BILINGUAL in place for pain control and pain is much improved today. Unfortunately later in the afternoon, RETAIL ASSOCIATE MANAGER BILINGUAL came out. He has incentive spirometry as bedside but has not used. Patient instructed on use and encouraged to use every hour. He is currently tolerating a low fiber diet. Abdomen soft with mild generalized tenderness. He has been afebrile, heart rate 68, blood pressure 92/47, pulse ox 95% on room air. Discussed smoking cessation and patient will agree to nicotine patch and encouraged to stop smoking after discharge from the hospital. Repeat blood work reveals normal WBC 10.4, hemoglobin 11.9. Sodium 134 otherwise electrolytes and renal function normal. Blood sugar 114. 03/31: The patient has not had a bowel movement since surgery. Plan for increase activity and ambulate in the hallway. 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 Lagunas catheter is to remain in place until he follows up with urology in the office. Abdominal pain controlled. He is tolerating diet. No nausea or vomiting. He has been afebrile, heart rate 100, blood pressure 121/67, pulse ox 96% on room air. Anticipate possible discharge by tomorrow. 04/01: Patient did not have BM yesterday but he is passing gas. He states he saw oncology 2 days prior to his surgery with no need for oncology involvement on this admission. Patient was doing well at the time of evaluation and denying any shortness of breath or chest pain. He was not requiring oxygen with pulse ox is 94% on room air. Tolerating diet with no nausea or vomiting. Received call from his nurse and temperature was 101.2, pulse ox 70%. Patient was placed on 6 L nasal cannula pulse ox 90%. Stat CTA of the chest ordered. It is noted the patient has not been using incentive spirometry and not ambulating as he has been instructed on multiple occasions. 04/02: CTA of the chest showed no pulmonary embolism. Moderate right lower lobe atelectasis or infiltrate and small effusion. Patient was started on IV Levaquin yesterday for possible pneumonia along with nebulizer treatments. He has been encouraged to ambulate. He is up in a chair today. Patient is also encouraged to use incentive spirometry. Abdominal pain is controlled. He is tolerating diet. He was afebrile overnight, heart rate 91, blood pressure 95/59, pulse ox 97% on 3 L nasal cannula. Repeat blood work reveals CMP unrema rkable. Hemoglobin is 12 and WBC 9.5. Urinalysis was clear with blood small, RBCs 8. No sign of UTI. Biopsy report reveals colon cancer, adenocarcinoma. 04/03: Patient's shortness of breath is significantly improved and now on room air pulse oxing 95%. His been afebrile, heart rate 84, blood pressure 101/57. Anticipate patient will be discharged home by general surgery today. We'll send prescription for Levaquin and medication reconciliation has been reviewed. Patient is clear for discharge from medicine. 04/04: Patient is sitting up in bed without any new complaints. He is able to tolerate meals. He had 1 small bowel movement today without any difficulties. Patient is anxious to go home. Patient is instructed to follow-up with surgeon and a primary care provider. Patient verbalized understanding. Discharge diagnosis: 1 post laparotomy with right hemicolectomy. 2 right-sided colon cancer: 3 acute hypoxic respiratory failure secondary to possible pneumonia versus atelectasis. 4 severe BPH with urinary retention: 5 chronic history of nicotine dependency and smoking. 6 mild hyperglycemia: 7 hypoxia. DISCHARGE DISPOSITION Home with self-care. Impression and plan of care have been directed as dictated by the signing physician. Simi Ferreira nurse practitioner acting as scribe for signing physician. Plan - Discharge Summary Discharge Rx Participant: Yes New Discharge Prescriptions: New Tamsulosin [Flomax] 0.4 mg PO PC-BRKFST #30 cap.er.24h Nicotine 14Mg/24Hr Patch [Habitrol] 1 patch TRANSDERM DAILY #30 patch Levofloxacin [Levaquin] 750 mg PO DAILY 4 Days #4 tab Metoprolol Tartrate [Lopressor] 25 mg PO BID #60 tab HYDROcodone/APAP 5-325MG [[place] 5-325] 1 - 2 tab PO Q4H PRN #30 tab PRN Reason: Pain Continue Omeprazole 40 mg PO DAILY #30 cap Discharge Medication List HYDROcodone/APAP 5-325MG [[place] 5-325] 1 - 2 tab PO Q4H PRN #30 tab 04/03/20 [Rx] Levofloxacin [Levaquin] 750 mg PO DAILY 4 Days #4 tab 04/03/20 [Rx] Metoprolol Tartrate [Lopressor] 25 mg PO BID #60 tab 04/03/20 [Rx] Nicotine 14Mg/24Hr Patch [Habitrol] 1 patch TRANSDERM DAILY #30 patch 04/03/20 [Rx] Tamsulosin [Flomax] 0.4 mg PO PC-BRKFST #30 cap.er.24h 04/03/20 [Rx] Omeprazole 40 mg PO DAILY #30 cap 04/04/20 [Rx] Follow up Appointment(s)/Referral(s): Jessica Pozo DO [Doctor of Osteopathic Medicine] - 04/09/20 (Call [phone] for an appointment..) Yoni Thompson MD [Medical Doctor] - 1 Week (office closed at time of discharge. Please call Monday to schedule appointment) Activity/Diet/Wound Care/Special Instructions: You may shower. No tub baths for 1 week. Light dressing to the incision if it is rubbing on your clothing or draining. Easy to digest food. Expect a looser bowel movement after eating for 1-2 weeks. No lifting greater than [address] while taking pain medication.
--- NOTE | 2020-04-04 12:25 | P.PN ---
Subjective Progress Note Date: 04/04/20 Patient seen and examined at bedside. Discharge order has been placed. Patient denies any difficulty with bowel function or urination. Tolerating diet. Objective - Vital Signs Vital signs: Vital Signs Temp 98.6 F 04/04/20 07:00 Pulse 92 04/04/20 08:35 Resp 18 04/04/20 02:25 BP 113/71 04/04/20 07:00 Pulse Ox 94 L 04/04/20 07:00 Intake & Output 04/03/20 04/04/20 04/04/20 18:59 06:59 18:59 Intake Total 200 Balance 200 Intake: Oral 200 Other: Voiding Method Indwelling Catheter Toilet Toilet # Voids 3 1 - Constitutional General appearance: Present: cooperative, no acute distress - Gastrointestinal Gastrointestinal Comment(s): Soft, nontender, nondistended, no rebound, no guarding, incision sites are clean, dry and intact with no active drainage - Psychiatric Psychiatric: Present: A&O x's 3 - Labs CBC & Chem 7: 04/02/20 05:45 04/02/20 05:45 Labs: Microbiology - Last 24 Hours (Table) 04/01/20 15:30 Blood Culture - Preliminary Blood No Growth after 48 hours 04/01/20 15:17 Blood Culture - Preliminary Blood No Growth after 48 hours Assessment and Plan Plan: Patient surgically stable for discharge. Plan is for follow-up this week in the surgical office. Discussed wound care with the patient. Discussed appropriate surgical hygiene with the patient. Patient is to call with any further questions.
== END 2020-04-04 14:57 | disposition home or self-care (01) | DRG 329 ==
LOC: 4SSUR 06:28
PROVIDERS: ADMIT Surgery; ATTEND Surgery
PROC: 0DJD0ZZ Inspection of Lower Intestinal Tract, Open Approach (ICD-10-PCS; principal; 2020-03-29 09:00)
PROC: 0DTF0ZZ Resection of Right Large Intestine, Open Approach (ICD-10-PCS; principal; 2020-03-29 09:00)
PROC: 0T9B80Z Drainage of Bladder with Drainage Device, Via Natural or Artificial Opening Endoscopic (ICD-10-PCS; 2020-03-29 09:00)
DX: C18.9 Malignant neoplasm of colon, unspecified (principal); J96.01 Acute respiratory failure with hypoxia; J18.9 Pneumonia, unspecified organism; K56.1 Intussusception; J98.11 Atelectasis; N40.1 Benign prostatic hyperplasia with lower urinary tract symptoms; F17.210 Nicotine dependence, cigarettes, uncomplicated; N36.5 Urethral false passage; K21.9 Gastro-esophageal reflux disease without esophagitis; R73.9 Hyperglycemia, unspecified; R33.8 Other retention of urine; N35.919 Unspecified urethral stricture, male, unspecified site; Z85.038 Personal history of other malignant neoplasm of large intestine; Z82.49 Family history of ischemic heart disease and other diseases of the circulatory system; Z82.3 Family history of stroke; Z80.3 Family history of malignant neoplasm of breast; Z80.1 Family history of malignant neoplasm of trachea, bronchus and lung; Z80.0 Family history of malignant neoplasm of digestive organs; Z98.890 Other specified postprocedural states; Z91.030 Bee allergy status
CPT/HCPCS: 71275; 80048; 80053; 81001; 85025; 85027; 87040; 88309; 93005; 94640; 94760

== ENCOUNTER → 2020-04-27 | Outpatient (CLI) | payer OTHER ==
--- NOTE | 2020-04-27 09:03 | CT ---
EXAMINATION TYPE: CT chest w con DATE OF EXAM: 04/27/2020 COMPARISON: 04/01/2020 HISTORY: 64-year-old male Colon cancer TECHNIQUE: Contiguous axial scanning of the chest after the administration of 100 mL of Isovue 300. Coronal/sagittal reconstructions performed. CT DLP: 397mGycm. Automatic exposure control utilized for a dose reduction. FINDINGS: Heart normal size with recent anterior pericardial fluid. Ectatic aortic root at 3.5 cm. The majority vessel branching anatomy. No thoracic lymphadenopathy by CT size criteria. Moderate centrilobular emphysema. - 6 mm medial right middle lobe pulmonary nodule is nonspecific on axial image 49. - Additional nonspecific ovoid nodularity along the right midlung and major fissure measuring 9 mm an d 5 mm, axial image 39. Interval clearance of the previous right effusion and right basilar consolidation. Visualized upper abdomen shows tiny subcentimeter hypodensity posterior right liver lobe, unchanged f rom 04/01/2020, probably a tiny cyst. Mottled arterial phase enhancement of the lesion is normal. Bones: No osseous destructive process. IMPRESSION: 1. COPD with moderate emphysema. 2. A few pulmonary nodules on the right measuring up to 9 mm are nonspecific. A couple of these nodul es are located along the major fissure suggesting subpleural lymph nodes. Three-month follow-up CT to reassess. Not significantly different from the prior exam just under a month ago.
== END | disposition home or self-care (01) ==
LOC: RADCTMAIN 06:58
PROVIDERS: ATTEND Internal Medicine Hematology & Oncology
DX: J43.9 Emphysema, unspecified (principal); R91.8 Other nonspecific abnormal finding of lung field; C18.2 Malignant neoplasm of ascending colon
CPT/HCPCS: 71260; Q9967

== ENCOUNTER 2020-09-08 14:01 | Emergency (ER) | payer OTHER ==
[2020-09-08] MEDS ORDERED: SODIUM CHLORIDE 0.9% 1,000 ML IV ONE (14:23)
--- NOTE | 2020-09-08 14:25 | ED ---
General Adult HPI - General Chief complaint: Headache Stated complaint: diarrhea/abd pain/headache Time Seen by Provider: 09/08/20 14:05 Source: patient, RN notes reviewed, old records reviewed Mode of arrival: ambulatory Limitations: no limitations - History of Present Illness Initial comments: This is a 65-year-old male presents emergency Department with a past medical history significant for colon cancer. Patient states his last chemotherapy was 2 weeks ago. Patient states he was supposed to get chemotherapy again tomorrow. Patient states she had a CAT scan earlier today and his primary medical care doctor wanted him to come to the emergency department because he wanted him to be tested for code. Patient complains of diarrhea and mild headache and a little bit of nausea. Patient states he has been able to eat and drink. Patient denies any chest pain or palpitations. Patient states he has some abdominal achiness but no specific area of tenderness per patient states he also has had generalized achiness. Patient complains also of having had the chills for over the last 3-4 days. Patient states the first time he had any symptoms was about 4 days ago. - Related Data Previous Rx's Medication Instructions Recorded HYDROcodone/APAP 5-325MG [[place] 1 - 2 tab PO Q4H PRN #30 tab 04/03/20 5-325] Levofloxacin [Levaquin] 750 mg PO DAILY 4 Days #4 tab 04/03/20 Metoprolol Tartrate [Lopressor] 25 mg PO BID #60 tab 04/03/20 Nicotine 14Mg/24Hr Patch [Habitrol] 1 patch TRANSDERM DAILY #30 patch 04/03/20 Tamsulosin [Flomax] 0.4 mg PO PC-BRKFST #30 cap.er.24h 04/03/20 Omeprazole 40 mg PO DAILY #30 cap 04/04/20 Allergies Allergy/AdvReac Type Severity Reaction Status Date / Time bees hornet, wasps Allergy Unknown swelling, Uncoded 09/08/20 14:06 difficulty breathing Review of Systems ROS Statement: Those systems with pertinent positive or pertinent negative responses have been documented in the HPI. ROS Other: All systems not noted in ROS Statement are negative. Past Medical History Past Medical History: Cancer, GERD/Reflux, Prostate Disorder Additional Past Medical History / Comment(s): spouse states "small bowel looped around itself,polyps removed on colonoscopy.",states 50 # wt loss since Jun 2019, pain in stomach with nausea and vomiting after eating, BPH. colon cancer History of Any Multi-Drug Resistant Organisms: None Reported Past Surgical History: Bowel Resection, Ear Surgery, Orthopedic Surgery Additional Past Surgical History / Comment(s): colonoscopy,EGD,hand/finger, ear , shoulder Past Anesthesia/Blood Transfusion Reactions: No Reported Reaction Additional Past Anesthesia/Blood Transfusion Reaction / Comment(s): no hx blood transfusion Past Psychological History: No Psychological Hx Reported Smoking Status: Former smoker Past Alcohol Use History: None Reported Past Drug Use History: None Reported - Past Family History Father Family Medical History: Cancer Additional Family Medical History / Comment(s): brain and lung cancer Sister(s) Family Medical History: Cancer Additional Family Medical History / Comment(s): breast cancer General Exam - General Exam Comments Initial Comments: GENERAL: Patient is well-developed and well-nourished. Patient is nontoxic and well- hydrated and is in mild distress. ENT: Neck is soft and supple. No significant lymphadenopathy is noted. Oropharynx is clear. Moist mucous membranes. Neck has full range of motion without eliciting any pain. EYES: The sclera were anicteric and conjunctiva were pink and moist. Extraocular movements were intact and pupils were equal round and reactive to light. Eyelids were unremarkable. PULMONARY: Unlabored respirations. Good breath sounds bilaterally. No audible rales rhonchi or wheezing was noted. CARDIOVASCULAR: There is a regular rate and rhythm without any murmurs gallops or rubs. ABDOMEN: Soft and nontender with normal bowel sounds. SKIN: Skin is clear with no lesions or rashes and otherwise unremarkable. NEUROLOGIC: Patient is alert and oriented x3. Cranial nerves II through XII are grossly intact. Motor and sensory are also intact. Normal speech, volume and content. Symmetrical smile. MUSCULOSKELETAL: Normal extremities with adequate strength and full range of motion. LYMPHATICS: No significant lymphadenopathy is noted PSYCHIATRIC: Normal psychiatric evaluation. Limitations: no limitations Course Vital Signs 09/08/20 14:02 Temperature 98.1 F Pulse Rate 99 Respiratory 22 Rate Blood Pressure 109/64 O2 Sat by Pulse 96 Oximetry Medical Decision Making - Medical Decision Making Patient is positive for COVID-19. Patient agreed to accept the monoclonal antibodies. Monoclonal antibodies were given to the patient. - Lab Data Result diagrams: 09/08/20 14:42 09/08/20 14:42 Lab Results 09/08/20 09/08/20 09/08/20 Range/Units 14:42 14:42 14:42 WBC 2.3 L (3.8-10.6) k/uL RBC 3.69 L (4.30-5.90) m/uL Hgb 11.8 L (13.0-17.5) gm/dL Hct 36.6 L (39.0-53.0) % MCV 99.2 (80.0-100.0) fL MCH 31.9 (25.0-35.0) pg MCHC 32.1 (31.0-37.0) g/dL RDW 19.7 H (11.5-15.5) % Plt Count 90 L (150-450) k/uL MPV 7.7 Neutrophils % 68 % Lymphocytes % 18 % Monocytes % 9 % Eosinophils % 1 % Basophils % 1 % Neutrophils # 1.6 (1.3-7.7) k/uL Lymphocytes # 0.4 L (1.0-4.8) k/uL Monocytes # 0.2 (0-1.0) k/uL Eosinophils # 0.0 (0-0.7) k/uL Basophils # 0.0 (0-0.2) k/uL Manual Slide Review Performed Anisocytosis Slight Macrocytosis Moderate Sodium 132 L (137-145) mmol/L Potassium 3.9 (3.5-5.1) mmol/L Chloride 101 (98-107) mmol/L Carbon Dioxide 23 (22-30) mmol/L Anion Gap 8 mmol/L BUN 11 (9-20) mg/dL Creatinine 0.80 (0.66-1.25) mg/dL Est GFR (CKD-EPI)AfAm >90 (>60 ml/min/1.73 sqM) Est GFR (CKD-EPI)NonAf >90 (>60 ml/min/1.73 sqM) Glucose 119 H (74-99) mg/dL Calcium 8.5 (8.4-10.2) mg/dL Magnesium 1.8 (1.6-2.3) mg/dL Total Bilirubin 0.6 (0.2-1.3) mg/dL AST 32 (17-59) U/L ALT 15 (4-49) U/L Alkaline Phosphatase 74 (38-126) U/L Total Protein 5.9 L (6.3-8.2) g/dL Albumin 3.3 L (3.5-5.0) g/dL Coronavirus (PCR) Detected A (Not Detectd) Disposition Clinical Impression: COVID-19 Disposition: HOME SELF-CARE Condition: Good Instructions (If sedation given, give patient instructions): Coronavirus Disease 2019 (COVID-19) Additional Instructions: Patient should return if his any shortness of breath or difficulty breathing or any new symptoms. Is patient prescribed a controlled substance at d/c from ED?: No Referrals: Yoni Thompson MD [Primary Care Provider] - 1-2 days Time of Disposition: 16:04
[2020-09-08] MEDS ORDERED: ACETAMINOPHEN TAB 500 MG TAB PO STA (14:28)
[2020-09-08 14:57] LABS: Anisocytosis Slight; Basophils % (A) 1 %; Eosinophils % (A) 1 %; HCT 36.6 % (39.0-53.0); HGB 11.8 gm/dL (13.0-17.5); Lymphocytes # (A) 0.4 k/uL (1.0-4.8); Lymphocytes % (A) 18 %; MCH 31.9 pg (25.0-35.0); MCHC 32.1 g/dL (31.0-37.0); MCV 99.2 fL (80.0-100.0); Macrocytosis Moderate; Mean Platelet Volume 7.7; Monocytes # (A) 0.2 k/uL (0-1.0); Monocytes % (A) 9 %; Neutrophils # (A) 1.6 k/uL (1.3-7.7); Neutrophils % (A) 68 %; RBC 3.69 m/uL (4.30-5.90); RDW 19.7 % (11.5-15.5); WBC 2.3 k/uL (3.8-10.6)
[2020-09-08 15:27] LABS: ALT 15 U/L (4-49); AST 32 U/L (17-59); African American GFR (CKD) >90 (>60 ml/min/1.73 sqM); Albumin 3.3 g/dL (3.5-5.0); Alkaline Phosphatase 74 U/L (38-126); Anion Gap 8 mmol/L; Blood Urea Nitrogen 11 mg/dL (9-20); Calcium 8.5 mg/dL (8.4-10.2); Carbon Dioxide 23 mmol/L (22-30); Chloride 101 mmol/L (98-107); Glucose 119 mg/dL (74-99); Magnesium 1.8 mg/dL (1.6-2.3); Non-African American GFR(CKD) >90 (>60 ml/min/1.73 sqM); Potassium 3.9 mmol/L (3.5-5.1); Sodium 132 mmol/L (137-145); Total Bilirubin 0.6 mg/dL (0.2-1.3); Total Protein 5.9 g/dL (6.3-8.2)
[2020-09-08 15:29] LABS: Platelet Count 90 k/uL (150-450)
[2020-09-08] MEDS ORDERED: BAMLANIVIMAB (EUA) 700 MG, ETESEVIMAB (EUA) 1,400 MG in SODIUM CHLORIDE 0.9% 50 ML IVPB ONE (16:45)
[2020-09-08] MEDS ORDERED: SODIUM CHLORIDE 0.9% 50 ML IVPB ONE (17:15)
[2020-09-08 18:31] VITALS: BP 101/61; PULSE 76; RESP 18; TEMP 97.9
== END 2020-09-08 18:33 | disposition home or self-care (01) ==
LOC: EC 14:01
DX: U07.1 COVID-19 (principal); C18.9 Malignant neoplasm of colon, unspecified; Z87.891 Personal history of nicotine dependence; Z91.030 Bee allergy status; Z91.038 Other insect allergy status
CPT/HCPCS: 36415; 80053; 83735; 85025; 87635; 99284; 96365; 96366 ×2; 96361; Q0245

== ENCOUNTER → 2020-09-08 | Outpatient (CLI) | payer OTHER ==
[2020-09-08 09:47] LABS: African American GFR (CKD) >90 (>60 ml/min/1.73 sqM); Blood Urea Nitrogen 12 mg/dL (9-20); Non-African American GFR(CKD) 85 (>60 ml/min/1.73 sqM)
--- NOTE | 2020-09-08 10:31 | CT ---
"EXAMINATION TYPE: CT abdomen w con DATE OF EXAM: 09/08/2020 COMPARISON: CT abdomen and pelvis February 06, 2020 HISTORY: Right upper quadrant pain, burping, nausea, history of colon cancer CT DLP: 345.6 mGycm, Automated Exposure Control for Dose Reduction was Utilized. CONTRAST: CT scan of the abdomen is performed with oral and with IV Contrast, patient injected with 100 mL of I sovue 300. FINDINGS: LUNG BASES: Mild emphysematous change with new multifocal predominantly peripheral groundglass opacit ies in the visualized lung bases. Finding suspicious for covid-19 infection. LIVER/GB: Liver remains heterogeneously hypodense suggesting diffuse fatty infiltration. Contracted g allbladder redemonstrated. PANCREAS: No significant abnormality is seen. SPLEEN: No significant abnormality is seen. ADRENALS: No significant abnormality is seen. KIDNEYS: Symmetric cortical medullary uptake and excretion without hydronephrosis seen bilaterally. BOWEL: Surgical changes from partial proximal colectomy are now present. No suspicious small or large bowel dilatation LYMPH NODES: No new greater than 1 cm abdominal lymph nodes are appreciated. OSSEOUS STRUCTURES: No significant abnormality is seen. OTHER: Overlying midline anterior vertical scar above the umbilicus is new from prior CT. Small fat-c ontaining incisional hernia axial image 37. Mild mixed plaque in aorta extends into branch vessels IMPRESSION: 1. Interval colonic surgery. No bowel obstruction. 2. New bilateral multifocal relatively peripheral groundglass opacities strongly suspicious for covid -19 infection in current compartment. A [employer] level critical message alert has been initiated for Tiffany Fuentes MD via the [employer] 36 0 | Critical Results System on 09/08/2020 10:28 AM. This message alert has been sent to Tiffany Fuentes MD via the preferences provided by the clinician for the receipt of Radiology Critical Findings. Ms ssage ID [id number]."
== END | disposition home or self-care (01) ==
LOC: RADCTMAIN 08:54
PROVIDERS: ATTEND Internal Medicine Hematology & Oncology
DX: R10.11 Right upper quadrant pain (principal); R91.8 Other nonspecific abnormal finding of lung field; Z85.038 Personal history of other malignant neoplasm of large intestine
CPT/HCPCS: 82565; 84520; 74160; 36415; Q9967

== ENCOUNTER → 2021-03-02 | Outpatient (CLI) | payer OTHER ==
--- NOTE | 2021-03-02 12:34 | CT ---
EXAMINATION TYPE: CT ChestAbdPelvis w con DATE OF EXAM: 03/02/2021 COMPARISON: 09/08/2020, 04/27/2001 HISTORY: Colon cancer CT DLP: 1147 mGycm Automated exposure control for dose reduction was used. CONTRAST: CT scan of the chest, abdomen and pelvis is performed with Oral Contrast and with IV Contrast, patien t injected with 100 ml mL of Isovue 300. FINDINGS: LUNGS: Centimeters changes are seen. There are 2 nodules seen in the right perihilar region axial romulo ge 38 the largest measuring 7 mm the smallest measuring 3 mm stable from prior exam and therefore lik caryn benign given the stability of approximately 2 years.. MEDIASTINUM: There are no greater than 1 cm hilar or mediastinal lymph nodes. No pericardial effusi on is seen. OTHER: No additional significant abnormality is seen. LIVER/GB: No significant abnormality is appreciated. PANCREAS: No significant abnormality is seen. SPLEEN: No significant abnormality is seen. ADRENALS: No significant abnormality is seen. KIDNEYS: No significant abnormality is seen. BOWEL: Diverticulosis with no CT evidence of diverticulitis. LYMPH NODES: No greater than 1 cm abdominal or pelvic lymph nodes are appreciated. OSSEOUS STRUCTURES: No significant abnormality is seen. OTHER: Bladder wall is thickened. There is marked enlargement of prostate with lobulation. Correlate with PSA. Could not exclude a component of the bladder wall mass recommend urological consultation. C orrelate for hematuria. Could possibly represent just impingement from the large prostate. Atherosclerotic change of the aorta. Ejection of bilateral hydrocele. IMPRESSION: 1. Marked enlargement of prostate. Correlate with PSA. Bladder wall thickening noted correlate for cy stitis. Could not exclude a posterior wall bladder mass. Recommend correlation with urinalysis for he maturia and urologic consultation. 2. Postsurgical change involving the colon with no evidence of recurrent wall thickening or pathologi c adenopathy. Subcentimeter pulmonary nodules previously described in the right lower lobe are stable over the course of nearly 2 years and therefore likely benign. 3. No evidence of pathologic adenopathy. 4. COPD.
== END | disposition home or self-care (01) ==
LOC: RADCTMAIN 10:17
PROVIDERS: ATTEND Internal Medicine Hematology & Oncology
DX: N40.0 Benign prostatic hyperplasia without lower urinary tract symptoms (principal); J44.9 Chronic obstructive pulmonary disease, unspecified; R91.8 Other nonspecific abnormal finding of lung field; Z85.038 Personal history of other malignant neoplasm of large intestine
CPT/HCPCS: 71260; 74177; Q9967

== ENCOUNTER 2021-03-18 15:48 | Emergency (ER) | payer OTHER ==
[2021-03-18 15:52] VITALS: RESP 18
--- NOTE | 2021-03-18 17:00 | ED ---
General Adult HPI - General Chief complaint: Urogenital Stated complaint: trouble urinating Time Seen by Provider: 03/18/21 16:19 Source: patient, RN notes reviewed, old records reviewed Mode of arrival: ambulatory Limitations: no limitations - History of Present Illness Initial comments: 65-year-old male presented for evaluation of dysuria, urinary frequency. He states he is urinating approximately every 30 minutes. He states that he has some discomfort and urge to urinate constantly. No fever. No flank pain. No vomiting. Patient is not currently sexually active. - Related Data Previous Rx's Medication Instructions Recorded HYDROcodone/APAP 5-325MG [[place] 1 - 2 tab PO Q4H PRN #30 tab 04/03/20 5-325] Levofloxacin [Levaquin] 750 mg PO DAILY 4 Days #4 tab 04/03/20 Metoprolol Tartrate [Lopressor] 25 mg PO BID #60 tab 04/03/20 Nicotine 14Mg/24Hr Patch [Habitrol] 1 patch TRANSDERM DAILY #30 patch 04/03/20 Tamsulosin [Flomax] 0.4 mg PO PC-BRKFST #30 cap.er.24h 04/03/20 Omeprazole 40 mg PO DAILY #30 cap 04/04/20 Cephalexin [Keflex] 500 mg PO TID #30 cap 03/18/21 Allergies Allergy/AdvReac Type Severity Reaction Status Date / Time bees hornet, wasps Allergy Unknown swelling, Uncoded 03/18/21 15:52 difficulty breathing Review of Systems ROS Statement: Those systems with pertinent positive or pertinent negative responses have been documented in the HPI. ROS Other: All systems not noted in ROS Statement are negative. Past Medical History Past Medical History: Cancer, GERD/Reflux, Prostate Disorder Additional Past Medical History / Comment(s): spouse states "small bowel looped around itself,polyps removed on colonoscopy.",states 50 # wt loss since Jun 2019, pain in stomach with nausea and vomiting after eating, BPH. colon cancer History of Any Multi-Drug Resistant Organisms: None Reported Past Surgical History: Bowel Resection, Ear Surgery, Orthopedic Surgery Additional Past Surgical History / Comment(s): colonoscopy,EGD,hand/finger, ear , shoulder Past Anesthesia/Blood Transfusion Reactions: No Reported Reaction Additional Past Anesthesia/Blood Transfusion Reaction / Comment(s): no hx blood transfusion Past Psychological History: No Psychological Hx Reported Smoking Status: Former smoker Past Alcohol Use History: None Reported Past Drug Use History: None Reported - Past Family History Father Family Medical History: Cancer Additional Family Medical History / Comment(s): brain and lung cancer Sister(s) Family Medical History: Cancer Additional Family Medical History / Comment(s): breast cancer General Exam Limitations: no limitations General appearance: alert, in no apparent distress Head exam: Present: atraumatic, normocephalic Eye exam: Present: normal appearance ENT exam: Present: normal exam Neck exam: Present: normal inspection. Absent: tenderness, meningismus Respiratory exam: Present: normal lung sounds bilaterally. Absent: respiratory distress, wheezes Cardiovascular Exam: Present: regular rate, normal rhythm GI/Abdominal exam: Present: soft, tenderness (Minimal suprapubic discomfort and tenderness). Absent: distended, guarding, rebound Extremities exam: Present: normal inspection, normal capillary refill. Absent: pedal edema Neurological exam: Present: alert, oriented X3, CN II-XII intact. Absent: motor sensory deficit Psychiatric exam: Present: normal affect, normal mood Skin exam: Present: warm, dry, intact. Absent: cyanosis, diaphoretic Course Vital Signs 03/18/21 15:49 Temperature 97.7 F Pulse Rate 97 Respiratory 18 Rate Blood Pressure 151/85 O2 Sat by Pulse 97 Oximetry Medical Decision Making - Medical Decision Making Bedside ultrasound shows small urine volume within the bladder. No urinary retention. Urinalysis showing significant turbidity and greater than 182 red cells and greater than 182 white cells with many bacteria. Culture will be performed. Patient is started on Keflex. Strict return parameters are discussed with the patient. He will increase oral hydration. Return with fever, vomiting, severe flank pain. - Lab Data Lab Results 03/18/21 Range/Units 16:56 Urine Color Yellow Urine Appearance Turbid (Clear) Urine pH 6.0 (5.0-8.0) Ur Specific [place] 1.020 (1.001-1.035) Urine Protein 2+ H (Negative) Urine Glucose (UA) Negative (Negative) Urine Ketones Negative (Negative) Urine Blood Large H (Negative) Urine Nitrite Positive (Negative) Urine Bilirubin Negative (Negative) Urine Urobilinogen <2.0 (<2.0) mg/dL Ur Leukocyte Esterase Large H (Negative) Urine RBC >182 H (0-5) /hpf Urine WBC >182 H (0-5) /hpf Urine WBC Clumps Many H (None) /hpf Urine Bacteria Many H (None) /hpf Urine Mucus Few H (None) /hpf Disposition Clinical Impression: UTI (urinary tract infection) Disposition: HOME SELF-CARE Condition: Good Instructions (If sedation given, give patient instructions): Urinary Tract Infection in Men (ED) Prescriptions: Cephalexin [Keflex] 500 mg PO TID #30 cap Is patient prescribed a controlled substance at d/c from ED?: No Referrals: Yoni Thompson MD [Primary Care Provider] - 1-2 days Time of Disposition: 17:15
[2021-03-18 17:02] LABS: Appearance,Urine Turbid (Clear); Bacteria,Urine Many /hpf; Bilirubin,Urine Negative (Negative); Blood,Urine Large (Negative); Color,Urine Yellow; Glucose,Urine (UA) Negative (Negative); Ketones,Urine Negative (Negative); Leukocyte Esterase,Urine Large (Negative); Mucus,Urine Few /hpf; Nitrite,Urine Positive (Negative); Protein,Urine 2+ (Negative); RBC,Urine >182 /hpf (0-5); Urobilinogen,Urine <2.0 mg/dL (<2.0); WBC,Urine >182 /hpf (0-5)
[2021-03-18] MEDS ORDERED: CEPHALEXIN 500 MG CAP PO STA (17:14)
[2021-03-18 17:25] VITALS: BP 143/96; PULSE 83; TEMP 97.8
== END 2021-03-18 17:23 | disposition home or self-care (01) ==
LOC: EC 15:48
DX: N39.0 Urinary tract infection, site not specified (principal); K21.9 Gastro-esophageal reflux disease without esophagitis; Z87.891 Personal history of nicotine dependence; Z79.899 Other long term (current) drug therapy; Z80.3 Family history of malignant neoplasm of breast; Z80.1 Family history of malignant neoplasm of trachea, bronchus and lung
CPT/HCPCS: 51798; 81001; 87086; 99283

== ENCOUNTER 2021-03-25 09:38 | Emergency (ER) | payer OTHER ==
[2021-03-25] MEDS ORDERED: KETOROLAC 15 MG/ML 1 ML VIAL IVP STA (09:47)
--- NOTE | 2021-03-25 10:17 | XR ---
EXAMINATION TYPE: XR ankle complete LT DATE OF EXAM: 03/25/2021 COMPARISON: NONE HISTORY: Pain FINDINGS: Three views of the ankle demonstrate the ankle mortise to be intact and symmetric. The joint spaces are preserved. The osseous structures are intact. Plantar calcaneal spur. IMPRESSION: 1. No definite acute fracture or dislocation, if symptoms persist follow-up study in 7 to 10 days wou ld be suggested.
[2021-03-25 10:22] VITALS: BP 129/72; PULSE 83; RESP 18; TEMP 97.7
--- NOTE | 2021-03-25 10:23 | ED ---
Lower Extremity Injury HPI - General Chief Complaint: Extremity Injury, Lower Stated Complaint: Foot injury [facility] Source: patient, EMS, RN notes reviewed Mode of arrival: EMS Limitations: no limitations - History of Present Illness Initial Comments: Patient is a 65-year-old male that presents to the emergency department via EMS after getting injured at work. He notes he was at work when about 6000 pounds of material that ran into his left ankle. Patient notes she was sent to the hospital for evaluation. Patient denied any issues or complaints. He notes that he can walk on it with minimal discomfort. He notes he does have full range of motion. He notes tenderness over the lateral anterior aspect. He denied any other issues or complaints. He was in no distress. She denied chest pain first breath headache nausea vomiting diarrhea constipation fever fatigue chills. - Related Data Previous Rx's Medication Instructions Recorded HYDROcodone/APAP 5-325MG [[place] 1 - 2 tab PO Q4H PRN #30 tab 04/03/20 5-325] Levofloxacin [Levaquin] 750 mg PO DAILY 4 Days #4 tab 04/03/20 Metoprolol Tartrate [Lopressor] 25 mg PO BID #60 tab 04/03/20 Nicotine 14Mg/24Hr Patch [Habitrol] 1 patch TRANSDERM DAILY #30 patch 04/03/20 Tamsulosin [Flomax] 0.4 mg PO PC-BRKFST #30 cap.er.24h 04/03/20 Omeprazole 40 mg PO DAILY #30 cap 04/04/20 Cephalexin [Keflex] 500 mg PO TID #30 cap 03/18/21 Allergies Allergy/AdvReac Type Severity Reaction Status Date / Time bees hornet, wasps Allergy Unknown swelling, Uncoded 03/25/21 09:46 difficulty breathing Review of Systems ROS Statement: Those systems with pertinent positive or pertinent negative responses have been documented in the HPI. ROS Other: All systems not noted in ROS Statement are negative. Past Medical History Past Medical History: Cancer, GERD/Reflux, Prostate Disorder Additional Past Medical History / Comment(s): spouse states "small bowel looped around itself,polyps removed on colonoscopy.",states 50 # wt loss since Jun 2019, pain in stomach with nausea and vomiting after eating, BPH. colon cancer History of Any Multi-Drug Resistant Organisms: None Reported Past Surgical History: Bowel Resection, Ear Surgery, Orthopedic Surgery Additional Past Surgical History / Comment(s): colonoscopy,EGD,hand/finger, ear , shoulder Past Anesthesia/Blood Transfusion Reactions: No Reported Reaction Additional Past Anesthesia/Blood Transfusion Reaction / Comment(s): no hx blood transfusion Past Psychological History: No Psychological Hx Reported Smoking Status: Former smoker Past Alcohol Use History: None Reported Past Drug Use History: None Reported - Past Family History Father Family Medical History: Cancer Additional Family Medical History / Comment(s): brain and lung cancer Sister(s) Family Medical History: Cancer Additional Family Medical History / Comment(s): breast cancer General Exam Limitations: no limitations General appearance: alert, in no apparent distress Head exam: Present: atraumatic, normocephalic, normal inspection Eye exam: Present: normal appearance, PERRL, EOMI. Absent: scleral icterus, conjunctival injection, periorbital swelling ENT exam: Present: normal exam, mucous membranes moist Neck exam: Present: normal inspection Respiratory exam: Present: normal lung sounds bilaterally. Absent: respiratory distress, wheezes, rales, rhonchi, stridor Cardiovascular Exam: Present: regular rate, normal rhythm, normal heart sounds. Absent: systolic murmur, diastolic murmur, rubs, gallop, clicks Left Ankle exam: Present: normal inspection, full ROM, tenderness (Lateral anterior aspect just proximal the lateral malleoli). Absent: swelling, abrasion, laceration, ecchymosis, deformity, crepitus, dislocation Neurological exam: Present: alert, oriented X3 Psychiatric exam: Present: normal affect, normal mood Skin exam: Present: warm, dry, intact, normal color. Absent: rash Course Vital Signs 03/25/21 09:41 Temperature 97.7 F Pulse Rate 83 Respiratory 18 Rate Blood Pressure 129/72 O2 Sat by Pulse 96 Oximetry Medical Decision Making - Medical Decision Making 65-year-old male complaining of left ankle pain after injury at work. X-ray left ankle, 15 mg of Toradol ordered. X-ray negative for any acute fractures or dislocations. Patient most likely has a left ankle sprain secondary to injury. Case discussed with Dr. Ren, patient discharge home. - Radiology Data Radiology results: report reviewed, image reviewed X-ray of the left ankle: No definite acute fracture dislocation. If symptoms p ersist follow-up study in 7-10 days would be suggested. Disposition Clinical Impression: Left ankle sprain Disposition: HOME SELF-CARE Condition: Stable Instructions (If sedation given, give patient instructions): Ankle Sprain (ED) Additional Instructions: Please return to the Emergency Department if symptoms worsen or any other concerns. Follow-up with primary care 1-2 days. Use as tolerated. Take Tylenol and Motrin as needed for pain. Rest ice compress elevate. Is patient prescribed a controlled substance at d/c from ED?: No Referrals: Yoni Thompson MD [Primary Care Provider] - 1-2 days
== END 2021-03-25 10:48 | disposition home or self-care (01) ==
LOC: EC 09:38
DX: S93.402A Sprain of unspecified ligament of left ankle, initial encounter (principal); K21.9 Gastro-esophageal reflux disease without esophagitis; Z85.038 Personal history of other malignant neoplasm of large intestine; Z87.891 Personal history of nicotine dependence; W20.8XXA Other cause of strike by thrown, projected or falling object, initial encounter
CPT/HCPCS: 96374; 99283

== ENCOUNTER → 2022-02-24 | Outpatient (CLI) | payer MEDICARE, OTHER ==
[2022-02-24 13:34] LABS: African American GFR (CKD) >90 (>60 ml/min/1.73 sqM); Blood Urea Nitrogen 15 mg/dL (9-20); Non-African American GFR(CKD) 83 (>60 ml/min/1.73 sqM)
--- NOTE | 2022-02-24 15:17 | CT ---
EXAMINATION TYPE: CT ChestAbdPelvis w con DATE OF EXAM: 02/24/2022 COMPARISON: Most recent whole body CT March 02, 2021 and older CTs HISTORY: Colon cancer progress study. CT DLP: 790 mGycm. Automated Exposure Control for Dose Reduction was Utilized. CONTRAST: CT scan of the thorax, abdomen and pelvis is performed with oral water and with IV Contrast, patient injected with 50 mL of Isovue 300. FINDINGS: LUNGS: Moderate underlying emphysematous changes are redemonstrated. No suspicious greater than 5 mm pulmonary nodules or masses. No pleural effusion or pneumothorax seen bilaterally. MEDIASTINUM: There are no new greater than 1 cm hilar or mediastinal lymph nodes. No cardiomegaly o r pericardial effusion is seen. LIVER/GB: Gallbladder not seen and presumed surgically absent. PANCREAS: No significant abnormality is seen. SPLEEN: No significant abnormality is seen. ADRENALS: No significant abnormality is seen. KIDNEYS: Mild distention of bladder redemonstrated. BOWEL: Distal sigmoid colonic diverticulosis redemonstrated. No CT evidence for acute diverticulitis. No suspicious small or large bowel dilatation. Surgical changes from proximal partial colectomy and small bowel anastomosis in the mid abdomen anteriorly are redemonstrated. GENITAL ORGANS: Enlarged prostate consistent with BPH bulging into bladder. LYMPH NODES: No greater than 1cm abdominal or pelvic lymph nodes are appreciated. OSSEOUS STRUCTURES: No significant abnormality is seen. OTHER: Mild to moderate peripheral mixed plaque of the aorta extends into branch vessels. IMPRESSION: No suspicious new mass or adenopathy to suggest neoplastic recurrence. Other findings un changed from most recent prior CT.
== END | disposition home or self-care (01) ==
LOC: RADCTMAIN 12:55
PROVIDERS: ATTEND Internal Medicine Hematology & Oncology
DX: C18.2 Malignant neoplasm of ascending colon (principal)
CPT/HCPCS: 82565; 84520; 71260; 74177; 36415; Q9967

== ENCOUNTER 2023-01-23 03:05 | Emergency (ER) | payer MEDICARE, OTHER ==
[2023-01-23 03:17] VITALS: BP 126/87; PULSE 104; RESP 18; TEMP 98.1
--- NOTE | 2023-01-23 03:22 | ED ---
Male Urogenital HPI - General Chief complaint: Urogenital Stated complaint: bladder issue Time Seen by Provider: 01/23/23 03:17 Source: patient, RN notes reviewed, old records reviewed Mode of arrival: ambulatory Limitations: no limitations - History of Present Illness Initial comments: This is a 67-year-old male to the emergency department today for evaluation of severe abdominal pain difficulty with urination. States he has had 2 days of increased urination. Pain, difficulty urinating completely. Blood in his urine. Patient has no fever but mild severe abdominal pain. No back pain no flank no fevers. No nausea vomiting. No other complaints MD Complaint: dysuria, other (Difficulty with urination) -: days(s) (2) Radiation: none Severity: moderate Severity scale (1-10): 4 Quality: aching Consistency: constant Improves with: none Worsens with: none Reports: denies other symptoms - Related Data Previous Rx's Medication Instructions Recorded HYDROcodone/APAP 5-325MG [[place] 1 - 2 tab PO Q4H PRN #30 tab 04/03/20 5-325] Metoprolol Tartrate [Lopressor] 25 mg PO BID #60 tab 04/03/20 Nicotine 14Mg/24Hr Patch [Habitrol] 1 patch TRANSDERM DAILY #30 patch 04/03/20 Tamsulosin [Flomax] 0.4 mg PO PC-BRKFST #30 cap.er.24h 04/03/20 levoFLOXacin [Levaquin] 750 mg PO DAILY 4 Days #4 tab 04/03/20 Omeprazole 40 mg PO DAILY #30 cap 04/04/20 Cephalexin [Keflex] 500 mg PO TID #30 cap 03/18/21 Amoxic-Pot Clav 875-125Mg 1 tab PO Q12HR #20 tablet 01/23/23 [Augmentin 875-125] Allergies Allergy/AdvReac Type Severity Reaction Status Date / Time bees hornet, wasps Allergy Unknown swelling, Uncoded 01/23/23 03:06 difficulty breathing Review of Systems ROS Statement: Those systems with pertinent positive or pertinent negative responses have been documented in the HPI. ROS Other: All systems not noted in ROS Statement are negative. Past Medical History Past Medical History: Cancer, GERD/Reflux, Prostate Disorder Additional Past Medical History / Comment(s): spouse states "small bowel looped around itself,polyps removed on colonoscopy.",states 50 # wt loss since Jun 2019, pain in stomach with nausea and vomiting after eating, BPH. colon cancer History of Any Multi-Drug Resistant Organisms: None Reported Past Surgical History: Bowel Resection, Ear Surgery, Orthopedic Surgery Additional Past Surgical History / Comment(s): colonoscopy,EGD,hand/finger, ear , shoulder Past Anesthesia/Blood Transfusion Reactions: No Reported Reaction Additional Past Anesthesia/Blood Transfusion Reaction / Comment(s): no hx blood transfusion Past Psychological History: No Psychological Hx Reported Smoking Status: Former smoker Past Alcohol Use History: None Reported Past Drug Use History: None Reported - Past Family History Father Family Medical History: Cancer Additional Family Medical History / Comment(s): brain and lung cancer Sister(s) Family Medical History: Cancer Additional Family Medical History / Comment(s): breast cancer General Exam Limitations: no limitations General appearance: alert, in no apparent distress Head exam: Present: atraumatic, normocephalic, normal inspection Eye exam: Present: normal appearance, PERRL, EOMI. Absent: scleral icterus, conjunctival injection, periorbital swelling ENT exam: Present: normal exam, mucous membranes moist Neck exam: Present: normal inspection. Absent: tenderness, meningismus, lymphadenopathy Respiratory exam: Present: normal lung sounds bilaterally. Absent: respiratory distress, wheezes, rales, rhonchi, stridor Cardiovascular Exam: Present: regular rate, normal rhythm, normal heart sounds. Absent: systolic murmur, diastolic murmur, rubs, gallop, clicks GI/Abdominal exam: Present: soft, normal bowel sounds. Absent: distended, tenderness, guarding, rebound, rigid Extremities exam: Present: normal inspection, full ROM, normal capillary refill. Absent: tenderness, pedal edema, joint swelling, calf tenderness Back exam: Present: normal inspection Neurological exam: Present: alert, oriented X3, CN II-XII intact Psychiatric exam: Present: normal affect, normal mood Skin exam: Present: warm, dry, intact, normal color. Absent: rash Course Vital Signs 01/23/23 01/23/23 03:07 03:09 Temperature 98.2 F 98.1 F Pulse Rate 115 H 104 H Respiratory 20 18 Rate Blood Pressure 135/84 126/87 O2 Sat by Pulse 96 96 Oximetry - Reevaluation(s) Reevaluation #1: 01/23/23 03:21 Record is reviewed Reevaluation #2: 01/23/23 04:34 Patient symptoms are unchanged 01/23/23 04:35 bladder scan is negative for retained urine Reevaluation #3: 01/23/23 04:34 Patient informed results and questions answered Reevaluation #4: 01/23/23 03:21 Was pt. sent in by a medical professional or institution (, RICKIE, ACCOUNT SUPPORT ANALYST, urgent care, hospital, or long term...) When possible be specific @ -no Did you speak to anyone other than the patient for history (EMS, parent, family, police, friend...)? What history was obtained from this source @ -no Did you review nursing and triage notes (agree or disagree)? Why? @ -agree Are old charts reviewed (outside hosp., previous admission, EMS record, old EKG, old radiological studies, urgent care reports/EKG's, long term records)? Report findings @ -yes Differential Diagnosis (chest pain, altered mental status, abdominal pain women, abdominal pain men, vaginal bleeding, weakness, fever, dyspnea, syncope, headache, dizziness, GI bleed, back pain, seizure, CVA, palpatations, mental health, musculoskeletal)? @ -prior EKG interpreted by me (3pts min.). @ -no X-rays interpreted by me (1pt min.). @ -no CT interpreted by me (1pt min.). @ -no U/S interpreted by me (1pt. min.). @ -no What testing was considered but not performed or refused? (CT, X-rays, U/S, labs)? Why? @ -none What meds were considered but not given or refused? Why? @ -none Did you discuss the management of the patient with other professionals (professionals i.e. RICKIE Rhodes, ACCOUNT SUPPORT ANALYST, lab, RT, psych nurse, long term care social worker, load checker, teacher, juvenile corrections officer, bottle caser)? Give summary @ -no Was smoking cessation discussed for >3mins.? @ -no Was critical care preformed (if so, how long)? @ -no Were there social determinants of health that impacted care today? How? (Homelessness, low income, unemployed, alcoholism, drug addiction, transportation, low edu. Level, literacy, decrease access to med. care, detention, rehab)? @ -none Was there de-escalation of care discussed even if they declined (Discuss DNR or withdrawal of care, Hospice)? DNR status @ -no What co-morbidities impacted this encounter? (DM, HTN, Smoking, COPD, CAD, Cancer, CVA, ARF, Chemo, Hep., AIDS, mental health diagnosis, sleep apnea, morbid obesity)? @ -none Was patient admitted / discharged? Hospital course, mention meds given and route, prescriptions, significant lab abnormalities, going to OR and other pertinent info. @ - 67 male to the emergency department for evaluation persistent significant abdominal pain especially difficulty with urination here in the ER the patient does have significant urinary tract infection and will be discharged home on oral antibiotics Discharge Undiagnosed new problem with uncertain prognosis? @ -no Drug Therapy requiring intensive monitoring for toxicity (Heparin, Nitro, Ins ulin, Cardizem)? @ -no Were any procedures done? @ -no Diagnosis/symptom? @ -Urinary tract infection or hematuria Acute, or Chronic, or Acute on Chronic? @ -Acute Uncomplicated (without systemic symptoms) or Complicated (systemic symptoms)? @ -Complicated Side effects of treatment? @ -no Exacerbation, Progression, or Severe Exacerbation? @ -exacerbation Poses a threat to life or bodily function? How? (Chest pain, [place], [place], pneumonia, PE, COPD, DKA, ARF, appy, cholecystitis, CVA, Diverticulitis, Homicidal, Suicidal, threat to staff... and all critical care pts) @ -no Reevaluation #5: 01/23/23 04:34 Differential Abdominal Pain Men: Appendicitis, cholecystitis, diverticulosis, ischemic bowel, pancreatitis, hepatitis, UTI, gastroenteritis, AAA, incarcerated hernia, bowel obstruction, constipation, inflammatory bowel, hepatitis, peptic ulcer disease, splenic infarction, perforated viscus, testicular torsion, this is not meant to be an all-inclusive list Medical Decision Making - Medical Decision Making 67 male to the emergency department for evaluation persistent significant abdominal pain especially difficulty with urination here in the ER the patient does have significant urinary tract infection with hematuria and will be discharged home on oral antibiotics - Lab Data Lab Results 01/23/23 Range/Units 03:17 Urine Color Yellow Urine Appearance Turbid (Clear) Urine pH 6.0 (5.0-8.0) Ur Specific [place] 1.020 (1.001-1.035) Urine Protein 2+ H (Negative) Urine Glucose (UA) Negative (Negative) Urine Ketones Trace H (Negative) Urine Blood Large H (Negative) Urine Nitrite Positive (Negative) Urine Bilirubin Negative (Negative) Urine Urobilinogen 4.0 (<2.0) mg/dL Ur Leukocyte Esterase Large H (Negative) Urine RBC >182 H (0-5) /hpf Urine WBC >182 H (0-5) /hpf Urine WBC Clumps Many H (None) /hpf Urine Bacteria Moderate H (None) /hpf Urine Mucus Occasional H (None) /hpf Disposition Clinical Impression: UTI (urinary tract infection) Disposition: HOME SELF-CARE Condition: Good Instructions (If sedation given, give patient instructions): Urinary Tract Infection in Men (ED) Prescriptions: Amoxic-Pot Clav 875-125Mg [Augmentin 875-125] 1 tab PO Q12HR #20 tablet Is patient prescribed a controlled substance at d/c from ED?: No Referrals: Yoni Thompson MD [Primary Care Provider] - 1-2 days Time of Disposition: 04:30
[2023-01-23 04:09] LABS: Appearance,Urine Turbid (Clear); Bacteria,Urine Moderate /hpf; Bilirubin,Urine Negative (Negative); Blood,Urine Large (Negative); Color,Urine Yellow; Glucose,Urine (UA) Negative (Negative); Ketones,Urine Trace (Negative); Leukocyte Esterase,Urine Large (Negative); Mucus,Urine Occasional /hpf; Nitrite,Urine Positive (Negative); Protein,Urine 2+ (Negative); RBC,Urine >182 /hpf (0-5); WBC,Urine >182 /hpf (0-5)
[2023-01-23] MEDS ORDERED: AMOXIC-POT CLAV 875MG STARTER PACK 2 TAB BTL PO STA (04:33)
[2023-01-23] MEDS ORDERED: AMOXIC-POT CLAV 875-125MG 1 EACH TAB PO STA (04:33)
== END 2023-01-23 04:50 | disposition home or self-care (01) ==
LOC: EC 03:05
DX: N39.0 Urinary tract infection, site not specified (principal); Z91.030 Bee allergy status; Z87.891 Personal history of nicotine dependence
CPT/HCPCS: 81001; 99284

== ENCOUNTER → 2023-03-01 | Outpatient (CLI) | payer MEDICARE, OTHER ==
--- NOTE | 2023-03-02 09:22 | US ---
EXAMINATION TYPE: US kidneys/renal and bladder DATE OF EXAM: 03/01/2023 COMPARISON: CLINICAL INDICATION: Male, 67 years old with history of N39.0 UTI; Hx of multiple UTI's recently. H x colon cancer x 3 years ago. EXAM MEASUREMENTS: Right Kidney: 10.5 x 5.5 x 4.5 cm Left Kidney: 11.3 x 5.8 x 5.0 cm Right Kidney: No hydronephrosis or masses seen Left Kidney: No hydronephrosis or masses seen Bladder: Anechoic. Bladder wall - 0.5 mm. Bladder wall irregularities with bladder diverticulum seen . Right jet seen There is no evidence for hydronephrosis at this point in time. No nephrolithiasis is seen. No adilene s are identified. IMPRESSION: 1. Urinary bladder trabeculations with diverticula noted. Mild wall thickening. Correlate for nonspec ific cystitis.
== END | disposition home or self-care (01) ==
LOC: RADUSWWP 15:19
PROVIDERS: ATTEND Internal Medicine Geriatric Medicine
DX: N39.0 Urinary tract infection, site not specified (principal); N32.89 Other specified disorders of bladder; Z85.038 Personal history of other malignant neoplasm of large intestine
CPT/HCPCS: 76770

== ENCOUNTER → 2023-03-13 | Outpatient (CLI) | payer MEDICARE, OTHER ==
[2023-03-13 09:44] LABS: African American GFR (CKD) >90 (>60 ml/min/1.73 sqM); Blood Urea Nitrogen 11 mg/dL (9-20); Non-African American GFR(CKD) >90 (>60 ml/min/1.73 sqM)
--- NOTE | 2023-03-13 11:18 | CT ---
EXAMINATION TYPE: CT ChestAbdPelvis w con CT DLP: 690.40 mGycm, Automated exposure control for dose reduction was used. DATE OF EXAM: 03/13/2023 11:06 AM COMPARISON: CT chest abdomen pelvis 02/24/2022, 03/02/2021. CLINICAL INDICATION:Male, 67 years old with history of C18.2 MALIGNANT NEOPLASM OF ASCENDING COLON; P HH, Malignant neoplasm of ascending colon Technique: Multiple axial images of the chest, abdomen, and pelvis were obtained following the intrav enous administration of 100 mL Isovue-300. Oral contrast was administered. Two-dimensional coronal an d sagittal reconstructions were obtained. FINDINGS: LUNGS: Moderate underlying emphysematous changes are redemonstrated. No suspicious greater than 5 mm pulmonary nodules or masses. Small focal region of reticular scarring and/or atelectasis within the r ight lower lobe abutting the major fissure. No pleural effusion or pneumothorax seen bilaterally. MEDIASTINUM: There are no new greater than 1 cm hilar or mediastinal lymph nodes. No cardiomegaly o r pericardial effusion is seen. Coronary arterial calcifications. LIVER/GB: No significant abnormality is seen. PANCREAS: No significant abnormality is seen. SPLEEN: No significant abnormality is seen. ADRENALS: No significant abnormality is seen. KIDNEYS/URINARY BLADDER: The kidneys enhance symmetrically. Contrast demonstrated within both collect ing systems on the delayed phase. No hydronephrosis or nephrolithiasis identified. Mild distention of bladder redemonstrated. BOWEL: Distal sigmoid colonic diverticulosis redemonstrated. No CT evidence for acute diverticulitis. No suspicious small or large bowel dilatation. Surgical changes from proximal partial colectomy and small bowel anastomosis in the mid abdomen anteriorly are redemonstrated. GENITAL ORGANS: Enlarged prostate consistent with BPH bulging into urinary bladder base. LYMPH NODES: No greater than 1cm abdominal or pelvic lymph nodes are appreciated. OSSEOUS STRUCTURES: No significant abnormality is seen. No aggressive osseous lesion. OTHER: Mild to moderate peripheral mixed plaque of the aorta extends into branch vessels. No abdomina l aortic aneurysm. IMPRESSION: 1. No suspicious new mass or adenopathy to suggest neoplastic recurrence. 2. Moderate COPD changes. 3. Prostatomegaly. 4. Postsurgical changes of the colon.
== END | disposition home or self-care (01) ==
LOC: RADCTMAIN 09:09
PROVIDERS: ATTEND Internal Medicine Hematology & Oncology
DX: C18.2 Malignant neoplasm of ascending colon (principal); G62.0 Drug-induced polyneuropathy; N40.0 Benign prostatic hyperplasia without lower urinary tract symptoms; J44.9 Chronic obstructive pulmonary disease, unspecified; Z90.49 Acquired absence of other specified parts of digestive tract
CPT/HCPCS: 82565; 84520; 71260; 74177; 36415; Q9967

== ENCOUNTER → 2024-03-04 | Outpatient (CLI) | payer MEDICARE, OTHER ==
[2024-03-04 14:43] LABS: African American GFR (CKD) 89 (>60 ml/min/1.73 sqM); Blood Urea Nitrogen 12 mg/dL (9-20); Non-African American GFR(CKD) 77 (>60 ml/min/1.73 sqM)
--- NOTE | 2024-03-04 17:12 | CT ---
EXAMINATION TYPE: CT ChestAbdPelvis w con CT DLP: 781 mGycm, Automated exposure control for dose reduction was used. DATE OF EXAM: 03/04/2024 4:32 PM COMPARISON: CT chest abdomen pelvis 03/13/2023, 02/24/2022, 03/02/2021 CLINICAL INDICATION:Male, 68 years old with history of C18.2 MALIGNANT NEOPLASM OF ASCENDING COLON; P HH, 4 years Remission Colon Ca. Technique: Multiple axial images of the chest, abdomen, and pelvis were obtained following the intrav enous administration of 100 mL Isovue-300. Oral contrast was administered. Two-dimensional coronal an d sagittal reconstructions were obtained. FINDINGS: LUNGS: Moderate underlying emphysematous changes are redemonstrated. No new suspicious greater than 5 mm pulmonary nodules or masses. Stable intrafissural lymph nodes along the right major fissure. Smal l focal region of reticular scarring and/or atelectasis within the right lower lobe abutting the tawn[place] r fissure. No pleural effusion or pneumothorax seen bilaterally. MEDIASTINUM: There are no new greater than 1 cm hilar or mediastinal lymph nodes. No cardiomegaly o r pericardial effusion is seen. Coronary arterial calcifications. LIVER/GB: No significant abnormality is seen. PANCREAS: No significant abnormality is seen. SPLEEN: No significant abnormality is seen. ADRENALS: No significant abnormality is seen. KIDNEYS/URINARY BLADDER: The kidneys enhance symmetrically. Contrast demonstrated within both collect ing systems on the delayed phase. No hydronephrosis or nephrolithiasis identified. Mild distention of bladder redemonstrated. BOWEL: Distal sigmoid colonic diverticulosis redemonstrated. No CT evidence for acute diverticulitis. No suspicious small or large bowel dilatation. Surgical changes from proximal partial colectomy and small bowel anastomosis in the mid abdomen anteriorly are redemonstrated. No suspicious focal soft ti ssue at the surgical sites. GENITAL ORGANS: Enlarged prostate consistent with BPH bulging into urinary bladder base. Prostate david cifications noted. LYMPH NODES: No greater than 1cm abdominal or pelvic lymph nodes are appreciated. OSSEOUS STRUCTURES: No significant abnormality is seen. No aggressive osseous lesion. Stable scleroti c focus within the right iliac bone likely representing benign bone island. OTHER: Mild to moderate peripheral mixed plaque of the aorta extends into branch vessels. No abdomina l aortic aneurysm. Fat filled left inguinal hernia redemonstrated. IMPRESSION: 1. No suspicious new mass or adenopathy to suggest neoplastic recurrence. 2. Moderate COPD changes. 3. Prostatomegaly. 4. Postsurgical changes of the colon. [facility], , 03/04/2024 5:09 PM
== END ==
LOC: RADCTMAIN 14:03
PROVIDERS: ATTEND Internal Medicine Hematology & Oncology
DX: C18.2 Malignant neoplasm of ascending colon
CPT/HCPCS: 36415; 71260; 74177; 82565; 84520